=== PATIENT | female | born 1970 | race Caucasian/White ===

== ENCOUNTER 2017-09-03 23:41 | Emergency (ER) | payer BC ==
[2017-09-04] MEDS ORDERED: NS 0.9% 1000 ML* 1,000 ML IV ONE (00:20)
[2017-09-04] MEDS ORDERED: Ondansetron INJ* 2 MG/ML VIAL IV ONE (00:20)
[2017-09-04] MEDS ORDERED: Morphine VIAL* 4 MG/ML VIAL (1 ml vial) IV PRN (00:20)
[2017-09-04] MEDS ORDERED: Aspirin 81 mg CHEW TAB* 81 MG TAB.CHEW PO ONE (00:20)
[2017-09-04 00:41] LABS: ABS Basophils 0 10^3/ul (0-0.2); ABS Eosinophils 0.1 10^3/ul (0-0.6); ABS Lymphocytes 2.4 10^3/ul (1.0-4.8); ABS Monocytes 0.5 10^3/ul (0-0.8); ABS Neutrophils 2.5 10^3/ul (1.5-7.7); ABS Nucleated RBC 0 10^3/ul; Eosinophil % 1.8 % (0-6); Hematocrit 37 % (35-47); Hemoglobin 12.4 g/dl (12.0-16.0); Lymphocyte % 43.2 % (25-47); Mean Corpuscular HGB Conc 34 g/dl (31-36); Mean Corpuscular Hemoglobin 29 pg (27-31); Mean Corpuscular Volume 88 fL (80-97); Mean Platelet Volume 8.6 um3 (7.4-10.4); Nucleated Red Blood Cells % 0; Platelet Count 186 10^3/ul (150-450); Red Blood Count 4.22 10^6/ul (4.0-5.4); Red Cell Distribution Width 13 % (10.5-15); White Blood Count 5.6 10^3/ul (3.5-10.8)
[2017-09-04 00:59] LABS: EGFR Non-African American 62.3 (>60)
[2017-09-04 01:16] LABS: INR 0.86 (0.77-1.02)
[2017-09-04] MEDS ORDERED: Ketorolac INJ* 30 MG/ML 1 ML VIAL ONE (02:34)
[2017-09-04] MEDS ORDERED: Ketorolac INJ* 30 MG/ML 1 ML VIAL IV PUSH ONE (02:37)
[2017-09-04] MEDS ORDERED: Morphine VIAL* 4 MG/ML VIAL (1 ml vial) IV ONE (03:16)
--- NOTE | 2017-09-04 04:35 | ED ---
Jacqueline Reyna Elizabeth, scribed for Kim Matos MD on 09/04/17 at 0105 . HPI Chest Pain - HPI Summary HPI Summary: This patient is a 30 year old F presenting to [facility] with a chief complaint of chest pain since 20:30. The patient reports that she was sitting on the couch watching TV when the pain started. The patient rates the pain 6/10 in severity. Symptoms aggravated by deep breaths. Symptoms alleviated by nothing. Patient reports right scapula pain. The patient denies SOB. The patient notes that she took ASA x1 prior to arrival. The patient takes Enbrel, Meloxicam, Singulair, Natalie 180, Klonopin, and Trazadone regularly. - History of Current Complaint Chief Complaint: EDChestPainROMI Time Seen by Provider: 09/03/17 23:56 Hx Obtained From: Patient Hx Last Menstrual Period: 09/02/14 Onset/Duration: Started Hours Ago - 1.5 hours ago, Still Present Initial Severity: Moderate Current Severity: Moderate Pain Intensity: 6 Pain Scale Used: 0-10 Numeric Chest Pain Location: Diffuse Chest Pain Radiates To:: Shoulder - right scapula Aggravating Factor(s): Deep Breaths Alleviating Factor(s): Nothing Associated Signs and Symptoms: Positive: Chest Pain - Allergy/Home Medications Allergies/Adverse Reactions: Allergies Allergy/AdvReac Type Severity Reaction Status Date / Time doxycycline Allergy Stomach Verified 09/03/17 23:52 Cramps leflunomide [From Arava] Allergy Hives Verified 09/03/17 23:52 naproxen Allergy Stomach Verified 09/03/17 23:52 Cramps NSAIDS (Non-Steroidal Allergy Hives Verified 09/03/17 23:52 Anti-Inflamma Sulfa (Sulfonamide Allergy Hives Verified 09/03/17 23:52 Antibiotics) Home Medications: Home Medications Buspirone HCl [Buspirone HCl] 5 mg PO BID 09/04/17 [History Confirmed 09/04/17] Etanercept [Enbrel] 50 mg SQ SEE INSTRUCTIONS 09/04/17 [History Confirmed ] Meloxicam [Meloxicam] 7.5 mg PO BID 09/04/17 [History Confirmed 09/04/17] Propranolol TAB* [Inderal TAB*] 20 mg PO DAILY 09/04/17 [History Confirmed 09/04] clonazePAM TAB(*) [Klonopin TAB(*)] 1 mg PO TID 09/04/17 [History Confirmed ] traZODone TAB* [Desyrel TAB*] 50 mg PO BEDTIME 09/04/17 [History Confirmed 09/04] PMH/Surg Hx/FS Hx/Imm Hx Endocrine/Hematology History: Denies: Hx Anticoagulant Therapy, Hx Diabetes Cardiovascular History: Reports: Hx Rheumatic Fever - Hx OF 1998, 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 NO Sx, Hx Jaundice - , Other GI Disorders - IBS History: Denies: Hx Renal Disease Musculoskeletal History: Reports: Hx Arthritis - RA, Hx Bursitis - LEFT SHOULDER , Hx Tendonitis - RT WRIST Sensory History: Reports: Hx Contacts or Glasses - GLASSES Denies: Hx Hearing Aid Opthamlomology History: Reports: Hx Contacts or Glasses - GLASSES Psychiatric History: Reports: Hx Anxiety - MEDS AVAILABLE, Hx Depression, Hx Post Traumatic Stress Disorder Denies: Hx Panic Disorder - Cancer History Hx Chemotherapy: No Hx Radiation Therapy: No - Surgical History Surgery Procedure, Year, and Place: R wrist surgery - MAY 2015 Infectious Disease History: No Infectious Disease History: Reports: Hx Shingles - 2009 Denies: History Other Infectious Disease, Traveled Outside the [place] in Last 30 Days - Family History Known Family History: Positive: None - Social History Alcohol Use: Occasionally Alcohol Amount: 1-2 DRINKS/MONTH Substance Use Type: Reports: None Smoking Status (MU): Former Smoker Type: Cigarettes Amount Used/How Often: 1PPWEEK 7 YRS Have You Smoked in the Last Year: No Review of Systems Negative: Epistaxis Positive: Chest Pain Negative: Shortness Of Breath Negative: Abdominal Pain Musculoskeletal: Other - right scapula pain Negative: Headache All Other Systems Reviewed And Are Negative: Yes Physical Exam - Summary Physical Exam Summary: VITAL SIGNS: Reviewed. GENERAL: ~Patient is a well-developed and nourished female who is lying comfortable in the stretcher. Patient is not in any acute respiratory distress. HEAD AND FACE: No signs of trauma. No ecchymosis, hematomas or skull depressions. No sinus tenderness. EYES: PERRLA, EOMI x 2, No injected conjunctiva, no nystagmus. EARS: Hearing grossly intact. Ear canals and tympanic membranes are within normal limits. MOUTH: Oropharynx within normal limits. NECK: Supple, trachea is midline, no adenopathy, no JVD, no carotid bruit, no c- spine tenderness, neck with full ROM. CHEST: Symmetric, no tenderness at palpation LUNGS: Clear to auscultation bilaterally. No wheezing or crackles. CVS: Regular rate and rhythm, S1 and S2 present, no murmurs or gallops appreciated. ABDOMEN: Soft, non-tender. No signs of distention. No rebound no guarding, and no masses palpated. Bowel sounds are normal. EXTREMITIES: FROM in all major joints, no edema, no cyanosis or clubbing. NEURO: Alert and oriented x 3. No acute neurological deficits. Speech is normal and follows commands. SKIN: Dry and warm Triage Information Reviewed: Yes Vital Signs On Initial Exam: Initial Vitals Temp Pulse Resp BP Pulse Ox 97.3 F 82 16 96/77 98 09/03/17 23:41 09/03/17 23:41 09/03/17 23:41 09/03/17 23:41 09/03/17 23:41 Vital Signs Reviewed: Yes Diagnostics - Vital Signs Vital Signs Temp Pulse Resp BP Pulse Ox 09/04/17 00:07 74 16 99/55 97 09/04/17 00:01 79 16 63/53 99 09/04/17 00:00 73 99 09/03/17 23:59 76 98 09/03/17 23:41 97.3 F 82 16 96/77 98 - Laboratory Lab Results: Lab Results 09/04/17 Range/Units 00:33 WBC 5.6 (3.5-10.8) 10^3/ul RBC 4.22 (4.0-5.4) 10^6/ul Hgb 12.4 (12.0-16.0) g/dl Hct 37 (35-47) % MCV 88 (80-97) fL MCH 29 (27-31) pg MCHC 34 (31-36) g/dl RDW 13 (10.5-15) % Plt Count 186 (150-450) 10^3/ul MPV 8.6 (7.4-10.4) um3 Neut % (Auto) 45.1 (38-83) % Lymph % (Auto) 43.2 (25-47) % [place] % (Auto) 9.3 H (0-7) % Eos % (Auto) 1.8 (0-6) % Baso % (Auto) 0.6 (0-2) % Absolute Neuts (auto) 2.5 (1.5-7.7) 10^3/ul Absolute Lymphs (auto) 2.4 (1.0-4.8) 10^3/ul Absolute Monos (auto) 0.5 (0-0.8) 10^3/ul Absolute Eos (auto) 0.1 (0-0.6) 10^3/ul Absolute Basos (auto) 0 (0-0.2) 10^3/ul Absolute Nucleated RBC 0 10^3/ul Nucleated RBC % 0 Result Diagrams: 09/04/17 00:33 09/04/17 00:33 Lab Statement: Any lab studies that have been ordered have been reviewed, and results considered in the medical decision making process. - Radiology CXR Xray Interpretation: No Acute Changes Radiology Interpretation Completed By: ED Physician - Dr. Matos, pending official report - EKG 23:59 Cardiac Rate: NL - at 76 BPM EKG Rhythm: Sinus Rhythm EKG Interpretation: normal axis, normal intervals, no ischemic changes Re-Evaluation - Re-Evaluation 1st re-eval Re-Evaluation Time: 01:26 Change: Improved Comment: The patien feels better. Discussed lab results with patient. Patient's troponin is 0 and it will re-checked again in 4 hours Chest Pain Course/Dx - Course Course Of Treatment: An EKG reveals NSR at 76 BPM with normal axis, normal intervals, no ischemic changes. CXR reveals no acute changes as interpreted by Dr. Matos, pending official report. ED physician has reviewed this radiology report. Upon re-evaluation at 01:25, the patient feels better. The patients troponin came back as 0 and will be repeated again in 4 hours. At 2:30 the patients chest pain resumed. In the ED course the patient was given ASA, IV fluids, morphine, and Zofran. Patient will be discharged home with dx of chest wall pain and with prescription for oxycodone. The patient is agreeable with this plan. - Diagnoses Provider Diagnoses: Chest wall pain Discharge - Sign-Out/Discharge Documenting (check all that apply): Discharge/Admit/Transfer - Discharge Plan Condition: Stable Disposition: HOME Prescriptions: oxyCODONE/Acetamin 5/325 MG* [Percocet 5/325 TAB*] 1 tab PO Q6H PRN #14 tab MDD 4 PRN Reason: Pain Patient Education Materials: Chest Wall Pain (ED) Referrals: Alejandro Jin MD [Primary Care Provider] - Additional Instructions: Follow up with primary care physician in 2-3 days if symptoms persist. Return to the emergency department with any new or worsening symptoms. The documentation as recorded by the Jacqueline robin Elizabeth accurately reflects the service I personally performed and the decisions made by Shawna mitchell Abdul, MD.
[2017-09-04 04:46] VITALS: BP 95/61
--- NOTE | 2017-09-04 08:02 | RAD ---
INDICATION: Chest pain COMPARISON: None TECHNIQUE: An AP portable view obtained at 0043 hours is submitted. FINDINGS: Bones/Soft Tissues: There are no acute bony findings. Cardiomediastinal: The cardiomediastinal silhouette is normal. Lungs: There are no infiltrates. Pleura: There are no pleural effusions. Other: None IMPRESSION: NO ACTIVE DISEASE.
== END 2017-09-04 04:45 | disposition home or self-care (01) ==
LOC: ED 23:41
DX: R07.89 Other chest pain (principal); K21.9 Gastro-esophageal reflux disease without esophagitis; F41.9 Anxiety disorder, unspecified; M19.90 Unspecified osteoarthritis, unspecified site; Z86.19 Personal history of other infectious and parasitic diseases; Z87.891 Personal history of nicotine dependence; Z88.3 Allergy status to other anti-infective agents; Z88.2 Allergy status to sulfonamides; Z88.8 Allergy status to other drugs, medicaments and biological substances
CPT/HCPCS: 36415; 71045; 80053; 82550; 83605; 83735; 83880; 84484; 85025; 85379; 85610; 85730; 93005; 96374; 96375; 99283; A9270-GY; J1885; J2270; J2405

== ENCOUNTER 2018-04-14 10:15 | Emergency (ER) | payer BC, OTHER ==
--- NOTE | 2018-04-14 11:15 | ED ---
Lower Extremity - HPI Summary HPI Summary: 48-year-old female presents with right knee pain today. She states she fell walking into work on her patella. She states that her knee did not twist. No numbness or tingling. States she has history of knee pain. Is able to ambulate with a limp. Denies any ankle pain. No other injury. no popping or locking. knee has not been giving out. She states she has least amount of pain when the knee is straight. - History of Current Complaint Chief Complaint: EDExtremityLower Stated Complaint: FALL/RIGHT KNEE Time Seen by Provider: 04/14/18 10:38 Hx Last Menstrual Period: 09/02/14 Pain Intensity: 8 - Allergies/Home Medications Allergies/Adverse Reactions: Allergies Allergy/AdvReac Type Severity Reaction Status Date / Time doxycycline AdvReac Stomach Verified 04/14/18 10:17 Cramps leflunomide [From Arava] AdvReac Hives Verified 04/14/18 10:17 naproxen AdvReac Stomach Verified 04/14/18 10:17 Cramps NSAIDS (Non-Steroidal AdvReac Hives Verified 04/14/18 10:17 Anti-Inflamma Sulfa (Sulfonamide AdvReac Hives Verified 04/14/18 10:17 Antibiotics) PMH/Surg Hx/FS Hx/Imm Hx Endocrine/Hematology History: Denies: Hx Anticoagulant Therapy, Hx Diabetes Cardiovascular History: Reports: Hx Rheumatic Fever - Hx OF 1998, 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 NO Sx, Hx Jaundice - INFANT, Other GI Disorders - IBS History: Denies: Hx Renal Disease Musculoskeletal History: Reports: Hx Arthritis - RA, Hx Bursitis - LEFT SHOULDER , Hx Tendonitis - RT WRIST Sensory History: Reports: Hx Contacts or Glasses - GLASSES Denies: Hx Hearing Aid Opthamlomology History: Reports: Hx Contacts or Glasses - GLASSES Psychiatric History: Reports: Hx Anxiety - MEDS AVAILABLE, Hx Depression, Hx Post Traumatic Stress Disorder Denies: Hx Panic Disorder - Cancer History Hx Chemotherapy: No Hx Radiation Therapy: No - Surgical History Surgery Procedure, Year, and Place: R wrist surgery - MAY 2015 Infectious Disease History: No Infectious Disease History: Reports: Hx Shingles - 2009 Denies: History Other Infectious Disease, Traveled Outside the [place] in Last 30 Days - Family History Known Family History: Positive: None - Social History Alcohol Use: Rare Alcohol Amount: 1-2 DRINKS/MONTH Substance Use Type: Reports: None Smoking Status (MU): Former Smoker Type: Cigarettes Amount Used/How Often: 1PPWEEK 7 YRS Have You Smoked in the Last Year: No Review of Systems Negative: Fever Negative: Chest Pain Negative: Shortness Of Breath Positive: Myalgia - right knee pain All Other Systems Reviewed And Are Negative: Yes Physical Exam Triage Information Reviewed: Yes Vital Signs On Initial Exam: Initial Vitals Temp Pulse Resp BP Pulse Ox 98.0 F 85 16 114/62 99 04/14/18 10:18 04/14/18 10:18 04/14/18 10:18 04/14/18 10:18 04/14/18 10:18 Vital Signs Reviewed: Yes Appearance: Positive: Well-Appearing Skin: Positive: Warm, Dry Head/Face: Positive: Normal Head/Face Inspection Eyes: Positive: Normal, Conjunctiva Clear ENT: Positive: Pharynx normal Respiratory/Lung Sounds: Positive: Clear to Auscultation, Breath Sounds Present Cardiovascular: Positive: Normal, RRR Musculoskeletal: Positive: Limited @ - right knee, Other - abrasion to patella right knee, good pulses, tenderness patella Neurological: Positive: Normal Psychiatric: Positive: Normal Diagnostics - Vital Signs Vital Signs Temp Pulse Resp BP Pulse Ox 04/14/18 10:18 98.0 F 85 16 114/62 99 - Laboratory Lab Statement: Any lab studies that have been ordered have been reviewed, and results considered in the medical decision making process. - Radiology knee Radiology Interpretation Completed By: Radiologist Summary of Radiographic Findings: no fracture Lower Extremity Course/Dx - Course Course Of Treatment: 48-year-old female presents with right knee pain today. She states she fell walking into work on her patella. She states that her knee did not twist. No numbness or tingling. States she has history of knee pain. Is able to ambulate with a limp. Denies any ankle pain. No other injury. no popping or locking. knee has not been giving out. She states she has least amount of pain when the knee is straight. On exam tenderness of patella right. Abrasion noted to the knee. Neurovascular intact. X-ray normal. Told to practice rice. Patient understands agrees with plan. - Diagnoses Differential Diagnosis/HQI/PQRI: Positive: Fracture (Closed), Sprain, Strain Provider Diagnoses: Right knee pain Discharge - Sign-Out/Discharge Documenting (check all that apply): Patient Departure - Discharge Plan Condition: Good Disposition: HOME Patient Education Materials: Knee Pain (ED) Forms: *Work Release Referrals: Trini Cuba NP [Primary Care Provider] - Rebeca Villarreal MD [Medical Doctor] - Additional Instructions: ice, elevate Take Tylenol every 6 hours as needed for pain follow up with ortho if no improvement Return to ED if develop any new or worsening symptoms - Billing Disposition and Condition Condition: GOOD Disposition: Home
[2018-04-14 11:40] VITALS: BP 108/57
== END 2018-04-14 11:39 | disposition home or self-care (01) ==
LOC: ED 10:15
DX: M25.561 Pain in right knee (principal); S80.211A Abrasion, right knee, initial encounter; W18.30XA Fall on same level, unspecified, initial encounter; Y93.01 Activity, walking, marching and hiking; Y92.239 Unspecified place in hospital as the place of occurrence of the external cause; Y99.0 Civilian activity done for income or pay; Z88.6 Allergy status to analgesic agent; Z88.1 Allergy status to other antibiotic agents; Z88.2 Allergy status to sulfonamides; Z87.891 Personal history of nicotine dependence
CPT/HCPCS: 99281

== ENCOUNTER → 2018-08-23 13:55 | Emergency (ER) | payer BC ==
--- OUTSIDE RECORDS SUMMARY | 2018-08-23 14:27 | XMS REPORT | Continuity of Care Document ---
:1970 External Reference #:[id number] Author Name Belen Daniels Care Team Providers Name Role Phone Trini Cuba FNP Primary Care Physician Unavailable Payers Date Identification Numbers Payment Provider Subscriber Effective: 2012 Policy Number: [id number] [employer] Lolis Nelson Cordell PayID: [id number] [address] Onset: 2018 Policy Number: [id number] [facility] Lolis Landa PayID: [id number] [place] [id number] Advance Directives Description No Information Available Problems Active Problems Provider Date Rheumatoid arthritis Rolan Patton M.D. Onset: 12/23/2011 Medications Irrigator Valve Pipe (Current) Use Encounter Rolan Patton M.D. Onset: 02/2012 Malaise and fatigue Rolan Patton M.D. 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 Tobacco Use Start: Unknown End: Former Cigarette Smoker Unknown Smoking Status Reviewed: 08/02/18 Former Cigarette Smoker ETOH Use Rarely consumes alcohol Tobacco Use Start: Unknown End: Patient is a former smoker Unknown Recreational Drug Use Denies Drug Use Exercise Type/Frequency Exercises regularly Allergies, Adverse Reactions, Alerts Active Allergies Reaction Severity Comments Date Sulfa 09/30/2010 Doxycycline 09/30/2010 Arava 09/30/2010 Ibuprofen 09/30/2010 Sulfasalazine Urticaria 05/19/2017 Medications Active Medications SIG Qnty Indications Ordering Date Provider Propranolol HCL take 1 in am and 2 90tabs G44.40 Justin 20mg in pm Keyanna Neumann 9 Tablets Meloxicam take one tab twice 180tabs M06.062 Alejandro Odell, 7.5mg daily as needed for M.DAkilah 7 Tablets pain, avoid other nsaids Neoprene Knee use daily to help 1units M22.41 Alejandro Odell, Stabilizer/Medium provide knee support M.Kwame 6 to improve Misc chondromalacia patella Hydrocodone-Acetamin take one 60tabs Alejandro Odell, ophen capsule/tablet by Keyanna 5 5-325mg Tablets mouth twice daily as needed for pain Bilateral Hinged use as needed Latasha Awad, Knee Sleeves Keyanna 5 Enbrel Sureclick 50mg sq inj every 12units M06.062 Alejandro Odell, week MAkilahDAkilah 1 50mg/ml Solution Auto-Inject Tumeric 1 tab a day Unknown 0 Magnesium 1 by mouth every day Unknown 400mg 0 Tablets CBD Unknown Liquid 0 Tizanidine HCL Bereket, 2mg Trini, SHANK ARCHER 0 Tablets Aripiprazole 1 by mouth one time Unknown 2mg per day 0 Tablets Trazodone HCL Alejandro Jin, 50mg MD 0 Tablets Desvenlafaxine Alejandro Jin, Succinate ER MD 0 100mg Tablets ER 24HR Montelukast Sodium Lynsey Paula C ,CFNP 0 10mg Tablets Fluticasone Lynsey Paula Propionate C ,CFNP 0 50mcg/Act Suspension Clobetasol Bereket, Propionate Trini, SHANK ARCHER 0 0.05% Lotion Lamotrigine Alexandrea Petit 25mg Gisele, BACK HANGER 0 Tablets Singulair 1 po qd 90tabs Unknown 10mg 0 Tablets Klonopin 1 tab 3x day 90tabs Unknown 1mg Tablets 0 Multi Complete daily Unknown 0 Capsules Digestive Enzymes 1 by mouth every day Unknown 0 Capsules Essential Oils aromatherapy Unknown 0 Clobex apply 3 times a week Unknown 0.05% Lotion for 2 wks as 0 directed Flonase Allergy spray 1 spray in Unknown Relief each nostril twice 0 50mcg/Act daily Suspension Pristiq 1 by mouth every day Unknown 100mg Tablets 0 ER 24HR Buspirone HCL 1 by mouth twice a Unknown 5mg day 0 Tablets Trazodone HCL 2 tablet at bedtime Unknown 50mg as needed 0 Tablets Natalie Allergy 1 by mouth every day Unknown 180mg 0 Tablets History Medications Propranolol HCL 1 tab in in the 90tabs G44.40 Justin 09/09/2017 - 20mg morning and 1 at [place] M.Kwame 04/23/2018 Tablets hs Propranolol HCL ER take 1 by mouth 30caps G44.40 Queta Hernandez MD 2017 - 60mg at night 09/09/2017 Caps ER 24HR Propranolol HCL 1 tab in am and 90tabs Queta Hernandez MD 06/03/2017 - 20mg 2 tabs at hs 07/15/2017 Tablets Methylprednisolone take according 21units G44.40 Queta Hernandez MD 2017 - 4mg to package 07/14/2017 TBPK instructions Malcolm-3 & Malcolm-6 Fish Take one 90caps Alejandro Odell, 10/16/2016 - Oil capsule/tablet M.D. 05/18/2017 1200mg Capsules daily by mouth for ra Cyanocobalamin take one 90tabs M06.062 Alejandro Odell, 05/19/2016 - 2500mcg capsule/tablet M.D. 05/18/2017 Tablets Sub daily by mouth Ultracet 1 - 2 by mouth 30tabs Latasha 06/11/2015 - 37.5-325mg q4-6hr as needed Keyanna Awad 07/14/2017 Tablets pain Ultracet 1-2 tabs by 30tabs Latasha 05/03/2015 - 37.5-325mg mouth every 4-6 Keyanna Awad 08/27/2015 Tablets hours as needed pain Naproxen DR 1 bid 60tabs M06.09 Rolan Patton, 04/19/2015 - 500mg Tablets M.D. 04/20/2015 DR Gonzalez twice daily with 60tabs M25.579 Alejandro Odell, 01/18/2015 - 500mg Tablets food as needed M.D. 05/18/2017 Methocarbamol take 2 tabs by 14tabs 782.0 Arielle Soto, 03/24/2014 - 500mg mouth as needed [facility] 10/03/2015 Tablets (not taking) Ultracet 1 po q4-6hr prn 30tabs Latasha 11/04/2012 - 37.5-325mg pain Keyanna Awad 08/27/2015 Tablets Carafate 2 tsp po qid 1Bottle Other Ordering 09/03/2012 - 1GM/10ML Provider 01/18/2015 Suspension Align 1 po qd 30caps Other Ordering 09/03/2012 - 4mg Capsules Provider 03/24/2014 Zithromax Z-Gregorio take 2 tabs po 1tabs 461.9 Arielle Soto, 09/03/2012 - 250mg 1st day of [facility] 01/12/2013 Tablets treatment then 1 tab po for an additional 4 days. Pristiq 1 po qd Rolan Patton, 06/02/2011 - 100mg Tablets ER M.D. 05/18/2017 24HR Tramadol 1 po bid 60tabs Arielle Soto, 09/30/2010 - Hydrochloride/Acetamin [facility] 06/03/2013 ophen 37.5-325mg Tablets Voltaren apply 4grams to [id number] Alejandro Odell, 09/30/2010 - 1% Gel affected area M.D. 04/13/2018 four times a day as needed Flector topical twice a 60units Rolan Patton, 09/30/2010 - 1.3% Patches day M.D. 09/30/2010 Pulmicort Flexhaler 1 puff bid 1units Unknown - 01/12/2013 90mcg/Act Aerosol Pulmicort Flexhaler 1 puff qd prn Unknown - 07/14/2017 90mcg/Act Aerosol Vitamin D by mouth 30tabs Unknown - 1000Unit everyday 08/15/2014 Tablets Citrucel 2 tablespoon by Unknown - Powder mouth twice a 04/14/2018 day Aleve 2 by mouth twice Unknown - 220mg Capsules a day as needed 04/20/2015 Buspirone HCL take one tablet Unknown - 5mg Tablets by mouth twice a 04/19/2015 day Flexeril 1 tab by mouth Unknown - 5mg Tablets three times a 04/13/2018 day as needed muscle spasm Xyzal 1 by mouth every Unknown - 5mg Tablets day 05/18/2017 Vitamin B12 1 by mouth every Unknown - 1000mcg day 05/18/2017 Tablets ER Vitamin D3 High 1 by mouth every Unknown - Potency day 05/18/2017 1000Unit Capsules Flovent Diskus Unknown - 05/18/2017 50mcg/Blist Aerosol Butalbital/Acetaminoph take 1 capsule Unknown - en/Caffeine as needed up to 07/14/2017 50-325-40mg 3x a day Capsules Lamictal 1 qd for 10 Unknown - 25mg Tablets days, to work up 04/13/2018 to 75 mg Restoril qhs prn 30caps Unknown - 15mg Capsules 06/03/2013 Vitamin B-12 TR sl qd Unknown - 1000mcg 01/12/2013 Tablets ER Melatonin Unknown - 5mg Tablets 01/12/2013 Fish Oil 1 po qd Unknown - 1000mg Capsules 12/23/2011 Zinc-220 1 po qd 30caps Unknown - 220mg Capsules 01/12/2013 Vitamin C 1 po qd 30tabs Unknown - 1000mg Tablets 01/12/2013 Iron 1 po bid Unknown - 325(65Fe) mg Tablets 01/12/2013 Fluticasone Propionate 2 sprays each 16gm Unknown - nostril qday 06/03/2013 50mcg/Act Suspension Pristiq 1 po qd 30tabs Unknown - 50mg Tablets ER 06/02/2011 24HR Pantoprazole Sodium 1 po qd 90tabs Unknown - 40mg 09/03/[address] Be 1 po bid 60caps Unknown - 220mg Capsules 01/12/2013 Cyclobenzaprine HCL take one at 30tabs Unknown - 5mg bedtime as 08/15/2014 Tablets needed Nortrel 1/35 (28) 1 po qd 3month Unknown - 05/18/2017 1-35mg-mcg Tablets Natalie Allergy once daily 30tabs Unknown - 180mg 05/19/2016 Tablets Medications Administered in Office Medication SIG Qnty Indications Ordering Provider Date Depomedrol 40MG Leonard Brumfield M.D. 05/17/2018 Injection Depomedrol 40MG Leonard Brumfield M.D. 01/18/2018 Injection Depomedrol 40MG Leonard Brumfield M.D. 01/18/2018 Injection Ctilalirol 40MG Leonard Brumfield M.D. 10/07/2017 Injection Mynoromedrol 40MG Leonard Brumfield M.D. 09/28/2017 Injection Depomedrol 40MG Jim Clemons M.D. 07/08/2016 Injection Citlalirol 40MG Leonard Brumfield M.D. 01/07/2016 Injection Mynoromedrol 40MG Leonard Brumfield M.D. 12/24/2015 Injection Depomedrol 40MG Latasha Awad M.D. 08/30/2015 Injection Depomedrol 80MG Latasha Awad M.D. 01/25/2015 Injection Depomedrol 80MG Latasha Awad M.D. 06/15/2014 Injection Mynoromedrol 80MG Latasha Awad M.D. 12/15/2013 Injection Mynoromedrol 80MG Latasha Awad M.D. 06/30/2013 Injection Mynoromedrol 80MG Latasha Awad M.D. 06/30/2013 Injection Depomedrol 80MG Latasha Awad M.D. 10/28/2012 Injection Immunizations CPT Code Status Date Vaccine Reaction Lot # [id number] Given 08/27/2015 Pneumonia Vaccine no reaction noted [id number] Vital Signs Date Vital Result Comment 08/02/2018 3:33pm Height 63.5 inches 5'3.50" Weight 188.00 lb Heart Rate 67 /min Body Temperature 97.0 F O2 % BldC Oximetry 97 % BMI (Body Mass Index) 32.8 kg/m2 07/21/2018 3:39pm Height 64 inches 5'4" Weight 188.50 lb Heart Rate 74 /min BP Systolic Sitting 118 mmHg BP Diastolic Sitting 80 mmHg Body Temperature 97.0 F Pain Level 8 O2 % BldC Oximetry 98 % BMI (Body Mass Index) 32.4 kg/m2 05/31/2018 3:30pm Height 64 inches 5'4" Weight 178.00 lb BP Systolic 118 mmHg BP Diastolic 80 mmHg Respiratory Rate 18 /min Pain Level 0 BMI (Body Mass Index) 30.6 kg/m2 05/17/2018 3:10pm Height 64 inches 5'4" Weight 178.00 lb BP Systolic 100 mmHg BP Diastolic 60 mmHg Respiratory Rate 18 /min Pain Level 6 BMI (Body Mass Index) 30.6 kg/m2 05/10/2018 3:35pm Height 64 inches 5'4" Weight 178.00 lb Heart Rate 84 /min BP Systolic 100 mmHg BP Diastolic 52 mmHg Respiratory Rate 18 /min Body Temperature 97.6 F Pain Level 6 BMI (Body Mass Index) 30.6 kg/m2 04/23/2018 3:08pm Height 63.5 inches 5'3.50" Weight 176.00 lb Heart Rate 72 /min BP Systolic Sitting 114 mmHg Rue BP Diastolic Sitting 74 mmHg Rue Respiratory Rate 16 /min BMI (Body Mass Index) 30.7 kg/m2 01/18/2018 3:37pm Heart Rate 72 /min BP Systolic 124 mmHg BP Diastolic 76 mmHg Respiratory Rate 14 /min Pain Level 8 10/21/2017 3:00pm Height 63.5 inches 5'3.50" Weight 175.00 lb pt. stated Heart Rate 80 /min BP Systolic Sitting 94 mmHg BP Diastolic Sitting 62 mmHg Respiratory Rate 14 /min Pain Level 2 BMI (Body Mass Index) 30.5 kg/m2 10/07/2017 3:41pm Height 63.5 inches 5'3.50" Weight 177.00 lb Heart Rate 85 /min BP Systolic 103 mmHg BP Diastolic 68 mmHg Body Temperature 97.5 F BMI (Body Mass Index) 30.9 kg/m2 09/28/2017 10:55am Height 63 inches 5'3" Weight 180.00 lb BP Systolic 108 mmHg BP Diastolic 64 mmHg Respiratory Rate 18 /min Pain Level 10 BMI (Body Mass Index) 31.9 kg/m2 09/09/2017 8:57am Height 63.5 inches 5'3.50" Weight 180.00 lb Heart Rate 70 /min BP Systolic Sitting 116 mmHg BP Diastolic Sitting 70 mmHg BMI (Body Mass Index) 31.4 kg/m2 07/15/2017 2:44pm Height 63.5 inches 5'3.50" Weight 178.44 lb Heart Rate 72 /min BP Systolic 100 mmHg BP Diastolic 68 mmHg BMI (Body Mass Index) 31.1 kg/m2 05/19/2017 1:05pm Height 63.5 inches 5'3.50" Weight 184.00 lb Heart Rate 84 /min BP Systolic 122 mmHg BP Diastolic 80 mmHg BMI (Body Mass Index) 32.1 kg/m2 05/12/2017 9:35am Height 63.5 inches 5'3.50" Weight 205.00 lb Heart Rate 109 /min Respiratory Rate 16 /min Body Temperature 98.3 F Pain Level 5 BMI (Body Mass Index) 35.7 kg/m2 04/22/2017 10:18am Height 63.5 inches 5'3.50" Weight 185.00 lb pt. states Heart Rate 85 /min BP Systolic Sitting 97 mmHg BP Diastolic Sitting 63 mmHg BMI (Body Mass Index) 32.3 kg/m2 10/16/2016 3:45pm Height 63.5 inches 5'3.50" Weight 203.00 lb Heart Rate 102 /min BP Systolic Sitting 114 mmHg BP Diastolic Sitting 74 mmHg Respiratory Rate 14 /min Pain Level 4 BMI (Body Mass Index) 35.4 kg/m2 07/08/2016 9:28am Height 63.5 inches 5'3.50" Weight 205.00 lb Heart Rate 82 /min BP Systolic 128 mmHg BP Diastolic 78 mmHg Respiratory Rate 16 /min Body Temperature 98.1 F Pain Level 8 BMI (Body Mass Index) 35.7 kg/m2 05/19/2016 8:19am Height 63.5 inches 5'3.50" Weight 206.38 lb BMI (Body Mass Index) 36.0 kg/m2 01/07/2016 3:51pm Height 63.5 inches 5'3.50" Weight 192.00 lb Heart Rate 91 /min BP Systolic 124 mmHg BP Diastolic 76 mmHg BMI (Body Mass Index) 33.5 kg/m2 12/24/2015 2:30pm Height 63.5 inches 5'3.50" Weight 199.00 lb Pain Level 8 BMI (Body Mass Index) 34.7 kg/m2 12/11/2015 4:32pm Height 63.5 inches 5'3.50" Weight 199.00 lb Heart Rate 80 /min BP Systolic Sitting 120 mmHg BP Diastolic Sitting 70 mmHg Body Temperature 97.8 F Pain Level 8 BMI (Body Mass Index) 34.7 kg/m2 11/14/2015 9:14am Height 63.5 inches 5'3.50" Weight 210.00 lb BP Systolic 128 mmHg BP Diastolic 72 mmHg Pain Level 9 BMI (Body Mass Index) 36.6 kg/m2 08/30/2015 1:14pm Height 63 inches 5'3" Weight 206.00 lb BMI (Body Mass Index) 36.5 kg/m2 08/27/2015 4:35pm Height 63 inches 5'3" Weight 206.00 lb Heart Rate 80 /min BP Systolic Sitting 120 mmHg BP Diastolic Sitting 80 mmHg Respiratory Rate 14 /min Body Temperature 98.3 F Pain Level 4 BMI (Body Mass Index) 36.5 kg/m2 07/09/2015 8:51am Height 63 inches 5'3" Weight 202.00 lb BMI (Body Mass Index) 35.8 kg/m2 06/11/2015 9:21am Height 63 inches 5'3" Weight 202.00 lb Body Temperature 99.2 F Pain Level 3 BMI (Body Mass Index) 35.8 kg/m2 05/03/2015 2:59pm Height 63 inches 5'3" Weight 202.00 lb BMI (Body Mass Index) 35.8 kg/m2 04/19/2015 2:44pm Height 63 inches 5'3" Weight 202.38 lb Heart Rate 80 /min BP Systolic Sitting 110 mmHg BP Diastolic Sitting 68 mmHg Respiratory Rate 14 /min Body Temperature 99.0 F tympanic Pain Level 3 BMI (Body Mass Index) 35.8 kg/m2 01/25/2015 4:19pm Height 63 inches 5'3" Weight 193.00 lb Pain Level 8 BMI (Body Mass Index) 34.2 kg/m2 01/18/2015 9:30am Height 63 inches 5'3" Weight 193.00 lb pt. stated, declined to be weighed Heart Rate 100 /min BP Systolic Sitting 110 mmHg BP Diastolic Sitting 80 mmHg Respiratory Rate 16 /min Pain Level 10 BMI (Body Mass Index) 34.2 kg/m2 11/15/2014 4:13pm Height 63 inches 5'3" Weight 212.25 lb Heart Rate 80 /min BP Systolic Sitting 94 mmHg BP Diastolic Sitting 56 mmHg Respiratory Rate 14 /min Pain Level 8 BMI (Body Mass Index) 37.6 kg/m2 08/15/2014 4:14pm Height 63 inches 5'3" Weight 200.00 lb Heart Rate 70 /min BP Systolic Sitting 102 mmHg BP Diastolic Sitting 70 mmHg Pain Level 7 BMI (Body Mass Index) 35.4 kg/m2 06/15/2014 3:24pm Height 63 inches 5'3" Weight 196.00 lb Pain Level 8 BMI (Body Mass Index) 34.7 kg/m2 03/24/2014 4:02pm Height 63 inches 5'3" Weight 196.00 lb Heart Rate 90 /min BP Systolic Sitting 118 mmHg BP Diastolic Sitting 72 mmHg Pain Level 7 BMI (Body Mass Index) 34.7 kg/m2 03/02/2014 4:21pm Height 63 inches 5'3" Weight 195.00 lb Pain Level 10 BMI (Body Mass Index) 34.5 kg/m2 02/01/2014 4:26pm Height 63 inches 5'3" Weight 195.00 lb Body Temperature 98.2 F BMI (Body Mass Index) 34.5 kg/m2 12/15/2013 8:00am Height 63 inches 5'3" Weight 195.00 lb Pain Level 6 BMI (Body Mass Index) 34.5 kg/m2 10/24/2013 2:59pm Height 63 inches 5'3" Weight 195.00 lb Heart Rate 96 /min BP Systolic Sitting 110 mmHg BP Diastolic Sitting 60 mmHg BMI (Body Mass Index) 34.5 kg/m2 06/03/2013 3:14pm Height 63 inches 5'3" Weight 191.00 lb Heart Rate 88 /min BP Systolic Sitting 100 mmHg BP Diastolic Sitting 78 mmHg BMI (Body Mass Index) 33.8 kg/m2 01/12/2013 2:42pm Height 63 inches 5'3" Weight 201.00 lb Heart Rate 95 /min BP Systolic Sitting 108 mmHg BP Diastolic Sitting 66 mmHg BMI (Body Mass Index) 35.6 kg/m2 09/03/2012 3:52pm Height 63 inches 5'3" Weight 192.06 lb Heart Rate 88 /min BP Systolic Sitting 128 mmHg BP Diastolic Sitting 72 mmHg BMI (Body Mass Index) 34.0 kg/m2 04/15/2012 4:37pm Height 63 inches 5'3" Weight 184.00 lb Heart Rate 82 /min BP Systolic Sitting 116 mmHg BP Diastolic Sitting 64 mmHg BMI (Body Mass Index) 32.6 kg/m2 12/23/2011 4:28pm Height 63 inches 5'3" Weight 183.00 lb Heart Rate 78 /min BP Systolic Sitting 120 mmHg BP Diastolic Sitting 67 mmHg BMI (Body Mass Index) 32.4 kg/m2 06/02/2011 4:10pm Height 63 inches 5'3" Weight 189.00 lb Heart Rate 82 /min BP Systolic Sitting 124 mmHg BP Diastolic Sitting 71 mmHg BMI (Body Mass Index) 33.5 kg/m2 01/30/2011 4:23pm Height 63 inches 5'3" Weight 200.00 lb BP Systolic 100 mmHg BP Diastolic 70 mmHg BMI (Body Mass Index) 35.4 kg/m2 09/30/2010 4:07pm Height 63 inches 5'3" Weight 183.00 lb Heart Rate 80 /min BP Systolic 120 mmHg BP Diastolic 70 mmHg BMI (Body Mass Index) 32.4 kg/m2 Results Test Date Facility Test Result H/L Range Note Urinalysis Profile 07/30/2018 [facility] Urine Color Straw [address] [place] [address] [phone] Urine Appearance Clear Urine Specific [place] 1.003 Low 1.010-1.030 Urine pH 6.0 N 5-9 Urine Urobilinogen Negative Negative Urine Ketones Negative Negative Urine Protein Negative Negative Urine Leukocytes Negative Negative Urine Blood Negative Negative Urine Nitrite Negative Negative Urine Bilirubin Negative Negative Urine Glucose Negative Negative Immunoglobulins 07/21/2018 [facility] Immunoglobulin G 1340 767 - 1 Serum Quant [address] mg/dL 1590 [place] [address] [phone] Immunoglobulin M 94 mg/dL 37 - 286 Immunoglobulin A 396 mg/dL Abnormal 61 - 356 S.Pneumoniae Igg 07/21/2018 [facility] S. pneumoniae 12.7 g/ mL >=2.3 AB [address] Type 1 [place] [address] [phone] S. pneumoniae Type 2 IgG AB 12.3 g/mL >=1.0 S. pneumoniae Type 3 IgG AB 6.5 g/mL >=1.8 S. pneumoniae Type 4 IgG AB 4.9 g/mL >=0.6 S. pneumoniae Type 5 IgG AB 27.4 g/mL >=10.7 S. pneumoniae Type 8 IgG AB 6.3 g/mL >=2.9 S. pneumoniae Type 9N IgG AB 8.2 g/mL >=9.2 S. pneumoniae Type 12F IgG AB 2.2 g/mL >=0.6 S. pneumoniae Type 14 IgG AB 8.6 g/mL >=7.0 S. pneumoniae Type 17F IgG AB 22.8 g/mL >=7.8 S. pneumoniae Type 19F IgG AB 7.5 g/mL >=15.0 S. pneumoniae Type 20 IgG AB 10.6 g/mL >=1.3 S. pneumoniae Type 22F IgG AB 21.7 g/mL >=7.2 S. pneumoniae Type 23F IgG AB 37.9 g/mL >=8.0 S. pneumoniae Type 6B IgG AB 79.1 g/mL >=4.7 S. pneumoniae Type 10A IgG AB 11.8 g/mL >=2.9 S. pneumoniae Type 11A IgG AB 6.6 g/mL >=2.4 S. pneumoniae Type 7F IgG AB 19.7 g/mL >=3.2 S. pneumoniae Type 15B IgG AB 5.0 g/mL >=3.3 S. pneumoniae Type 18C IgG AB 11.5 g/mL >=3.3 S. pneumoniae Type 19A IgG AB 20.9 g/mL >=17.1 S. pneumoniae Type 9V IgG AB 17.6 g/mL >=2.6 S. pneumoniae Type 33F IgG AB 20.3 g/mL >=1.7 2 T&B Cell 07/21/2018 [facility] CD45 Total 2.29 thou/mcL 0.82- 2.[address] Lymph [place] [address] [phone] Percent CD3 Cells (T Cells) 81 % 58-86 Percent CD19 Cells (B Cells) 8 % 6-24 % CD16+CD56 Cells (NK Cells) 11 % 4-28 Percent CD4 Cell (T Cell) 61 % 32-64 Percent CD8 Cells (T Cells) 19 % 13-40 CD3 (T Cells) 1844 cells/L 550-2202 CD19 (B Cells) 174 cells/L 70-409 CD16+CD56 Count (NK cells) 241 cells/L 59-513 CD4 (T Cell) 1391 cells/L 365-1437 CD8 (T Cell) 430 cells/L 145-846 4/8 Ratio 3.2 >=0.9 T B Cell Comment See Comment 3 Laboratory test 07/15/2018 [facility] Erythrocyte Sed 18 mm/Hr N 0-20 [address] [place] [address] [phone] C Reactive Protein 1.28 mg/L N <8.01 5 CBC Auto Diff 07/15/2018 [facility] White Blood 5.2 10^3/uL N 3.5-10.[address] [place] [address] [phone] Red Blood Count 4.15 10^6/uL N 3.70-4.87 Hemoglobin 12.3 g/dL N 12.0-16.0 Hematocrit 37 % N 33-41 Mean Corpuscular Volume 90 fL N 80-97 Mean Corpuscular Hemoglobin 30 pg N 27-31 Mean Corpuscular HGB Conc 33 g/dL N 31-36 Red Cell Distribution Width 13 % N 10.5-15 Platelet Count 165 10^3/uL N 150-450 Mean Platelet Volume 9.3 fL N 7.4-10.4 Abs Neutrophils 3.6 10^3/uL N 1.5-7.7 Abs Lymphocytes 0.9 10^3/uL Low 1.0-4.8 Abs Monocytes 0.5 10^3/uL N 0-0.8 Abs Eosinophils 0.1 10^3/uL N 0-0.6 Abs Basophils 0 10^3/uL N 0-0.2 Abs Nucleated RBC 0 10^3/uL Granulocyte % 69.2 % Lymphocyte % 18.0 % Monocyte % 9.3 % Eosinophil % 2.8 % Basophil % 0.7 % Nucleated Red Blood Cells % 0 Comp Metabolic Panel 07/15/2018 [facility] Sodium 139 mmol/L N 135-[address] [place] [address] [phone] Potassium 4.2 mmol/L N 3.5-5.0 Chloride 104 mmol/L N 101-111 Co2 Carbon Dioxide 30 mmol/L N 22-32 Anion Gap 5 mmol/L N 2-11 Glucose 86 mg/dL N 70-100 Blood Urea Nitrogen 17 mg/dL N 6-24 Creatinine 1.06 mg/dL High 0.51-0.95 BUN/Creatinine Ratio 16.0 N 8-20 Calcium 9.6 mg/dL N 8.6-10.3 Total Protein 7.0 g/dL N 6.4-8.9 Albumin 4.2 g/dL N 3.2-5.2 Globulin 2.8 g/dL N 2-4 Albumin/Globulin Ratio 1.5 N 1-3 Total Bilirubin 0.30 mg/dL N 0.2-1.0 Alkaline Phosphatase 86 U/L N 34-104 Alt 30 U/L N 7-52 Ast 26 U/L N 13-39 Egfr Non- 55.3 >60 Egfr 66.9 >60 6 Quantiferon 07/09/2018 [facility] QuantiFERON-Tb Negative Negative 7 Gold TB [address] [place] [address] [phone] TB1 Ag minus Nil Result 0 IU/mL TB2 Ag minus Nil Result -0.01 IU/mL TB Mitogen minus Nil Result > 10.00 IU/mL TB Nil Result 0.17 IU/mL 8 Laboratory test 10/19/2017 [facility] Erythrocyte Sed 13 mm/Hr N 0-[address] [place] [address] [phone] C Reactive Protein < 1.00 mg/L N <8.01 10 CBC Auto Diff 10/19/2017 [facility] White Blood 6.6 10^3/uL N 3.5-10.[address] [place] [address] [phone] Red Blood Count 4.46 10^6/uL N 4.00-5.40 Hemoglobin 13.4 g/dL N 12.0-16.0 Hematocrit 40 % N 35-47 Mean Corpuscular Volume 89 fL N 80-97 Mean Corpuscular Hemoglobin 30 pg N 27-31 Mean Corpuscular HGB Conc 34 g/dL N 31-36 Red Cell Distribution Width 13 % N 10.5-15 Platelet Count 232 10^3/uL N 150-450 Mean Platelet Volume 8.4 um3 N 7.4-10.4 Abs Neutrophils 3.6 10^3/uL N 1.5-7.7 Abs Lymphocytes 2.4 10^3/uL N 1.0-4.8 Abs Monocytes 0.4 10^3/uL N 0-0.8 Abs Eosinophils 0.1 10^3/uL N 0-0.6 Abs Basophils 0.1 10^3/uL N 0-0.2 Abs Nucleated RBC 0 10^3/uL Granulocyte % 54.4 % N 38-83 Lymphocyte % 36.5 % N 25-47 Monocyte % 6.4 % N 0-7 Eosinophil % 1.9 % N 0-6 Basophil % 0.8 % N 0-2 Nucleated Red Blood Cells % 0 Comp Metabolic Panel 10/19/2017 [facility] Sodium 137 mmol/L N 135-145 [address] [place] [address] [phone] Potassium 4.1 mmol/L N 3.5-5.0 Chloride 100 mmol/L Low 101-111 Co2 Carbon Dioxide 30 mmol/L N 22-32 Anion Gap 7 mmol/L N 2-11 Glucose 94 mg/dL N 70-100 Blood Urea Nitrogen 15 mg/dL N 6-24 Creatinine 0.95 mg/dL N 0.51-0.95 BUN/Creatinine Ratio 15.8 N 8-20 Calcium 9.7 mg/dL N 8.6-10.3 Total Protein 7.1 g/dL N 6.4-8.9 Albumin 4.3 g/dL N 3.2-5.2 Globulin 2.8 g/dL N 2-4 Albumin/Globulin Ratio 1.5 N 1-3 Total Bilirubin 0.30 mg/dL N 0.2-1.0 Alkaline Phosphatase 78 U/L N 34-104 Alt 17 U/L N 7-52 Ast 17 U/L N 13-39 Egfr Non- 63.1 >60 Egfr 76.3 >60 11 Laboratory test 04/10/2017 [facility] Erythrocyte Sed 27 mm/Hr High 0-14 [address] [place] [address] [phone] C Reactive Protein 2.96 mg/L N < 5.00 13 CBC Auto Diff 04/10/2017 [facility] White Blood 6.0 10^3/uL N 3.5-10.[address] [place] [address] [phone] Red Blood Count 4.20 10^6/uL N 4.0-5.4 Hemoglobin 12.4 g/dL N 12.0-16.0 Hematocrit 37 % N 35-47 Mean Corpuscular Volume 88 fL N 80-97 Mean Corpuscular Hemoglobin 29 pg N 27-31 Mean Corpuscular HGB Conc 34 g/dL N 31-36 Red Cell Distribution Width 14 % N 10.5-15 Platelet Count 215 10^3/uL N 150-450 Mean Platelet Volume 9 um3 N 7.4-10.4 Abs Neutrophils 4.0 10^3/uL N 1.5-7.7 Abs Lymphocytes 1.5 10^3/uL N 1.0-4.8 Abs Monocytes 0.5 10^3/uL N 0-0.8 Abs Eosinophils 0 10^3/uL N 0-0.6 Abs Basophils 0 10^3/uL N 0-0.2 Abs Nucleated RBC 0.01 10^3/uL Granulocyte % 66.5 % N 38-83 Lymphocyte % 25.1 % N 25-47 Monocyte % 7.9 % N 1-9 Eosinophil % 0 % N 0-6 Basophil % 0.5 % N 0-2 Nucleated Red Blood Cells % 0.1 Comp Metabolic Panel 04/10/2017 [facility] Sodium 134 mmol/L N 133-[address] [place] [address] [phone] Potassium 3.9 mmol/L N 3.5-5.0 Chloride 103 mmol/L N 101-111 Co2 Carbon Dioxide 24 mmol/L N 22-32 Anion Gap 7 mmol/L N 2-11 Glucose 99 mg/dL N 70-100 Blood Urea Nitrogen 9 mg/dL N 6-24 Creatinine 0.71 mg/dL N 0.51-0.95 BUN/Creatinine Ratio 12.7 N 8-20 Calcium 9.2 mg/dL N 8.6-10.3 Total Protein 7.1 g/dL N 6.4-8.9 Albumin 4.0 g/dL N 3.2-5.2 Globulin 3.1 g/dL N 2-4 Albumin/Globulin Ratio 1.3 N 1-3 Total Bilirubin 0.20 mg/dL N 0.2-1.0 Alkaline Phosphatase 94 U/L N 34-104 Alt 21 U/L N 7-52 Ast 18 U/L N 13-39 Egfr Non- 88.2 >60 Egfr 113.5 >60 14 Laboratory test 02/10/2017 [facility] Erythrocyte Sed 32 mm/Hr High 0-14 [address] [place] [address] [phone] C Reactive Protein 9.06 mg/L High < 5.00 16 CBC Auto Diff 02/10/2017 [facility] White Blood 8.4 10^3/uL N 3.5-10.[address] [place] [address] [phone] Red Blood Count 4.51 10^6/uL N 4.0-5.4 Hemoglobin 12.9 g/dL N 12.0-16.0 Hematocrit 39 % N 35-47 Mean Corpuscular Volume 86 fL N 80-97 Mean Corpuscular Hemoglobin 29 pg N 27-31 Mean Corpuscular HGB Conc 33 g/dL N 31-36 Red Cell Distribution Width 14 % N 10.5-15 Platelet Count 283 10^3/uL N 150-450 Mean Platelet Volume 9 um3 N 7.4-10.4 Abs Neutrophils 5.8 10^3/uL N 1.5-7.7 Abs Lymphocytes 1.6 10^3/uL N 1.0-4.8 Abs Monocytes 0.7 10^3/uL N 0-0.8 Abs Eosinophils 0.3 10^3/uL N 0-0.6 Abs Basophils 0.1 10^3/uL N 0-0.2 Abs Nucleated RBC 0.01 10^3/uL N Granulocyte % 69.3 % N 38-83 Lymphocyte % 18.8 % Low 25-47 Monocyte % 7.9 % N 1-9 Eosinophil % 3.1 % N 0-6 Basophil % 0.9 % N 0-2 Nucleated Red Blood Cells % 0.1 N Comp Metabolic Panel 02/10/2017 [facility] Sodium 134 mmol/L N 133-[address] [place] [address] [phone] Potassium 4.3 mmol/L N 3.5-5.0 Chloride 97 mmol/L Low 101-111 Co2 Carbon Dioxide 30 mmol/L N 22-32 Anion Gap 7 mmol/L N 2-11 Glucose 87 mg/dL N 70-100 Blood Urea Nitrogen 14 mg/dL N 6-24 Creatinine 0.91 mg/dL N 0.51-0.95 BUN/Creatinine Ratio 15.4 N 8-20 Calcium 10.0 mg/dL N 8.6-10.3 Total Protein 7.6 g/dL N 6.4-8.9 Albumin 4.4 g/dL N 3.2-5.2 Globulin 3.2 g/dL N 2-4 Albumin/Globulin Ratio 1.4 N 1-3 Total Bilirubin 0.30 mg/dL N 0.2-1.0 Alkaline Phosphatase 85 U/L N 34-104 Alt 19 U/L N 7-52 Ast 24 U/L N 13-39 Egfr Non- 66.6 N >60 Egfr 85.6 N >60 17 Laboratory test 10/10/2016 [facility] Erythrocyte Sed 39 mm/Hr High 0-[address] [place] [place] [address] [phone] C Reactive Protein 7.95 mg/L High < 5.00 18 CBC Auto Diff 10/10/2016 [facility] White Blood 6.6 10^3/uL N 3.5-10.[address] [place] [address] [phone] Red Blood Count 4.56 10^6/uL N 4.0-5.4 Hemoglobin 12.9 g/dL N 12.0-16.0 Hematocrit 40 % N 35-47 Mean Corpuscular Volume 88 fL N 80-97 Mean Corpuscular Hemoglobin 28 pg N 27-31 Mean Corpuscular HGB Conc 32 g/dL N 31-36 Red Cell Distribution Width 13 % N 10.5-15 Platelet Count 260 10^3/uL N 150-450 Mean Platelet Volume 9 um3 N 7.4-10.4 Abs Neutrophils 4.4 10^3/uL N 1.5-7.7 Abs Lymphocytes 1.6 10^3/uL N 1.0-4.8 Abs Monocytes 0.4 10^3/uL N 0-0.8 Abs Eosinophils 0 10^3/uL N 0-0.6 Abs Basophils 0 10^3/uL N 0-0.2 Abs Nucleated RBC 0 10^3/uL N Granulocyte % 67.6 % N 38-83 Lymphocyte % 25.1 % N 25-47 Monocyte % 6.3 % N 1-9 Eosinophil % 0.4 % N 0-6 Basophil % 0.6 % N 0-2 Nucleated Red Blood Cells % 0 N Comp Metabolic Panel 10/10/2016 [facility] Sodium 134 mmol/L N 133-[address] [place] [address] [phone] Potassium 3.9 mmol/L N 3.5-5.0 Chloride 103 mmol/L N 101-111 Co2 Carbon Dioxide 26 mmol/L N 22-32 Anion Gap 5 mmol/L N 2-11 Glucose 95 mg/dL N 70-100 Blood Urea Nitrogen 13 mg/dL N 6-24 Creatinine 0.82 mg/dL N 0.51-0.95 BUN/Creatinine Ratio 15.9 N 8-20 Calcium 9.8 mg/dL N 8.6-10.3 Total Protein 7.9 g/dL N 6.4-8.9 Albumin 4.4 g/dL N 3.2-5.2 Globulin 3.5 g/dL N 2-4 Albumin/Globulin Ratio 1.3 N 1-3 Total Bilirubin 0.30 mg/dL N 0.2-1.0 Alkaline Phosphatase 69 U/L N 34-104 Alt 20 U/L N 7-52 Ast 22 U/L N 13-39 Egfr Non- 75.1 N >60 Egfr 96.5 N >60 19 Laboratory test 04/23/2016 [facility] C Reactive 11.53 mg/L High < 5.00 [address] [place] [place] [address] [phone] Erythrocyte Sed Rate 30 mm/Hr High 0-14 CBC W/Auto 04/23/2016 [facility] White Blood 6.6 10^3/uL N 3.5 -10.[address] [place] [address] [phone] Red Blood Count 4.38 10^6/uL N 4.0-5.4 Hemoglobin 12.2 g/dL N 12.0-16.0 Hematocrit 37 % N 35-47 Mean Corpuscular Volume 85 fL N 80-97 Mean Corpuscular Hemoglobin 28 pg N 27-31 Mean Corpuscular HGB Conc 33 g/dL N 31-36 Red Cell Distribution Width 13 % N 10.5-15 Platelet Count 240 10^3/uL N 150-450 Mean Platelet Volume 9 um3 N 7.4-10.4 Abs Neutrophils 4.0 10^3/uL N 1.5-7.7 Abs Lymphocytes 2.0 10^3/uL N 1.0-4.8 Abs Monocytes 0.4 10^3/uL N 0-0.8 Abs Eosinophils 0 10^3/uL N 0-0.6 Abs Basophils 0.1 10^3/uL N 0-0.2 Abs Nucleated RBC 0.01 10^3/uL N Granulocyte % 61.6 % N 38-83 Lymphocyte % 31.0 % N 25-47 Monocyte % 6.2 % N 1-9 Eosinophil % 0.3 % N 0-6 Basophil % 0.9 % N 0-2 Nucleated Red Blood Cells % 0.1 N CMP Panel 04/23/2016 [facility] Sodium 135 mmol/L N 133-[address] [place] [address] [phone] Potassium 4.3 mmol/L N 3.5-5.0 Chloride 102 mmol/L N 101-111 Co2 Carbon Dioxide 26 mmol/L N 22-32 Anion Gap 7 mmol/L N 2-11 Glucose 92 mg/dL N 70-100 Blood Urea Nitrogen 11 mg/dL N 6-24 Creatinine 0.87 mg/dL N 0.51-0.95 BUN/Creatinine Ratio 12.6 N 8-20 Calcium 9.6 mg/dL N 8.6-10.3 Total Protein 7.2 g/dL N 6.4-8.9 Albumin 4.0 g/dL N 3.2-5.2 Globulin 3.2 g/dL N 2-4 Albumin/Globulin Ratio 1.3 N 1-3 Total Bilirubin 0.30 mg/dL N 0.2-1.0 Alkaline Phosphatase 61 U/L N 34-104 Alt 18 U/L N 7-52 Ast 20 U/L N 13-39 Egfr Non- 70.1 N >60 Egfr 90.1 N >60 21 Laboratory test 12/06/2015 [facility] C Reactive 6.05 mg/L High < 5.00 [address] [place] [address] [phone] Erythrocyte Sed Rate 34 mm/Hr High 0-14 Comp Metabolic Panel 12/06/2015 [facility] Sodium 135 mmol/L N 133-[address] [place] [address] [phone] Potassium 4.1 mmol/L N 3.5-5.0 Chloride 102 mmol/L N 101-111 Co2 Carbon Dioxide 24 mmol/L N 22-32 Anion Gap 9 mmol/L N 2-11 Glucose 121 mg/dL High 70-100 Blood Urea Nitrogen 8 mg/dL N 6-24 Creatinine 0.83 mg/dL N 0.51-0.95 BUN/Creatinine Ratio 9.6 N 8-20 Calcium 9.1 mg/dL N 8.6-10.3 Total Protein 7.2 g/dL N 6.4-8.9 Albumin 3.9 g/dL N 3.2-5.2 Globulin 3.3 g/dL N 2-4 Albumin/Globulin Ratio 1.2 N 1-3 Total Bilirubin 0.30 mg/dL N 0.2-1.0 Alkaline Phosphatase 50 U/L N 34-104 Alt 26 U/L N 7-52 Ast 27 U/L N 13-39 Egfr Non- 74.3 N >60 Egfr 95.6 N >60 23 CBC Auto Diff 12/06/2015 [facility] White Blood 5.9 10^3/uL N 3.5-10.[address] [place] [place] [address] [phone] Red Blood Count 4.30 10^6/uL N 4.0-5.4 Hemoglobin 12.1 g/dL N 12.0-16.0 Hematocrit 37 % N 35-47 Mean Corpuscular Volume 86 fL N 80-97 Mean Corpuscular Hemoglobin 28 pg N 27-31 Mean Corpuscular HGB Conc 33 g/dL N 31-36 Red Cell Distribution Width 13 % N 10.5-15 Platelet Count 260 10^3/uL N 150-450 Mean Platelet Volume 9 um3 N 7.4-10.4 Abs Neutrophils 3.9 10^3/uL N 1.5-7.7 Abs Lymphocytes 1.5 10^3/uL N 1.0-4.8 Abs Monocytes 0.3 10^3/uL N 0-0.8 Abs Eosinophils 0 10^3/uL N 0-0.6 Abs Basophils 0.1 10^3/uL N 0-0.2 Abs Nucleated RBC 0 10^3/uL N Granulocyte % 67.2 % N 38-83 Lymphocyte % 26.2 % N 25-47 Monocyte % 5.4 % N 1-9 Eosinophil % 0 % N 0-6 Basophil % 1.2 % N 0-2 Nucleated Red Blood Cells % 0 N CBC W/Auto 08/23/2015 [facility] White Blood 7.2 10^3/uL N 3.5 -10.[address] [place] [address] [phone] Red Blood Count 4.39 10^6/uL N 4.0-5.4 Hemoglobin 12.5 g/dL N 12.0-16.0 Hematocrit 38 % N 35-47 Mean Corpuscular Volume 86 fL N 80-97 Mean Corpuscular Hemoglobin 28 pg N 27-31 Mean Corpuscular HGB Conc 33 g/dL N 31-36 Red Cell Distribution Width 13 % N 10.5-15 Platelet Count 259 10^3/uL N 150-450 Mean Platelet Volume 9 um3 N 7.4-10.4 Abs Neutrophils 4.9 10^3/uL N 1.5-7.7 Abs Lymphocytes 1.8 10^3/uL N 1.0-4.8 Abs Monocytes 0.4 10^3/uL N 0-0.8 Abs Eosinophils 0 10^3/uL N 0-0.6 Abs Basophils 0.1 10^3/uL N 0-0.2 Abs Nucleated RBC 0 10^3/uL N Granulocyte % 68.1 % N 38-83 Lymphocyte % 25.0 % N 25-47 Monocyte % 6.2 % N 1-9 Eosinophil % 0 % N 0-6 Basophil % 0.7 % N 0-2 Nucleated Red Blood Cells % 0 N CMP Panel 08/23/2015 [facility] Sodium 135 mmol/L N 133-145 [address] [place] [address] [phone] Potassium 4.1 mmol/L N 3.5-5.0 Chloride 101 mmol/L N 101-111 Co2 Carbon Dioxide 26 mmol/L N 22-32 Anion Gap 8 mmol/L N 2-11 Glucose 90 mg/dL N 70-100 Blood Urea Nitrogen 9 mg/dL N 6-24 Creatinine 0.80 mg/dL N 0.51-0.95 BUN/Creatinine Ratio 11.3 N 8-20 Calcium 9.3 mg/dL N 8.6-10.3 Total Protein 7.6 g/dL N 6.4-8.9 Albumin 4.0 g/dL N 3.2-5.2 Globulin 3.6 g/dL N 2-4 Albumin/Globulin Ratio 1.1 N 1-3 Total Bilirubin 0.30 mg/dL N 0.2-1.0 Alkaline Phosphatase 58 U/L N 34-104 Alt 20 U/L N 7-52 Ast 20 U/L N 13-39 Egfr Non- 77.6 N >60 Egfr 99.8 N >60 24 Laboratory test 08/23/2015 [facility] C Reactive 12.11 mg/L High < 5.00 25 finding [address] [facility] [place] [place] [address] [phone] Erythrocyte Sed Rate 43 mm/Hr High 0-14 Comp Metabolic Panel 04/18/2015 [facility] Sodium 137 mmol/L N 133-145 [address] [place] [address] [phone] Potassium 4.1 mmol/L N 3.5-5.0 Chloride 105 mmol/L N 101-111 Co2 Carbon Dioxide 24 mmol/L N 22-32 Anion Gap 8 mmol/L N 2-11 Glucose 94 mg/dL N 70-100 Blood Urea Nitrogen 10 mg/dL N 6-24 Creatinine 0.84 mg/dL N 0.51-0.95 BUN/Creatinine Ratio 11.9 N 8-20 Calcium 9.1 mg/dL N 8.6-10.3 Total Protein 7.1 g/dL N 6.4-8.9 Albumin 4.0 g/dL N 3.2-5.2 Globulin 3.1 g/dL N 2-4 Albumin/Globulin Ratio 1.3 N 1-3 Total Bilirubin 0.30 mg/dL N 0.2-1.0 Alkaline Phosphatase 47 U/L N 34-104 Alt 41 U/L N 7-52 Ast 26 U/L N 13-39 Egfr Non- 73.3 N >60 Egfr 94.3 N >60 26 Laboratory test 04/18/2015 [facility] C Reactive 9.29 mg/L High < 5.00 [address] [place] [place] [address] [phone] CBC Auto Diff 04/18/2015 [facility] White Blood 5.7 N 3.5- 10.[address] Count 10^3/[place] [address] [phone] Red Blood Count 4.34 10^6/uL N 4.0-5.4 Hemoglobin 12.3 g/dL N 12.0-16.0 Hematocrit 38 % N 35-47 Mean Corpuscular Volume 88 fL N 80-97 Mean Corpuscular Hemoglobin 28 pg N 27-31 Mean Corpuscular HGB Conc 32 g/dL N 31-36 Red Cell Distribution Width 13 % N 10.5-15 Platelet Count 241 10^3/uL N 150-450 Mean Platelet Volume 9 um3 N 7.4-10.4 Abs Neutrophils 3.4 10^3/uL N 1.5-7.7 Abs Lymphocytes 1.7 10^3/uL N 1.0-4.8 Abs Monocytes 0.3 10^3/uL N 0-0.8 Abs Eosinophils 0.2 10^3/uL N 0-0.6 Abs Basophils 0 10^3/uL N 0-0.2 Abs Nucleated RBC 0 10^3/uL N Granulocyte % 60.4 % N 38-83 Lymphocyte % 29.5 % N 25-47 Monocyte % 5.3 % N 1-9 Eosinophil % 4.2 % N 0-6 Basophil % 0.6 % N 0-2 Nucleated Red Blood Cells % 0.1 N Laboratory test 04/18/2015 [facility] Erythrocyte Sed 33 mm/Hr High 0-[address] [place] [address] [phone] CBC Auto Diff 01/17/2015 [facility] White Blood 5.8 N 4.8- 10.[address] Count 10^3/[place] [address] [phone] Red Blood Count 4.39 10^6/uL N 4.0-5.4 Hemoglobin 12.6 g/dL N 12.0-16.0 Hematocrit 39 % N 35-47 Mean Corpuscular Volume 88 fL N 80-97 Mean Corpuscular Hemoglobin 29 pg N 27-31 Mean Corpuscular HGB Conc 33 g/dL N 31-36 Red Cell Distribution Width 13 % N 10.5-15 Platelet Count 238 10^3/uL N 150-450 Mean Platelet Volume 9 um3 N 7.4-10.4 Abs Neutrophils 3.2 10^3/uL N 1.5-7.7 Abs Lymphocytes 1.8 10^3/uL N 1.0-4.8 Abs Monocytes 0.4 10^3/uL N 0-0.8 Abs Eosinophils 0.4 10^3/uL N 0-0.6 Abs Basophils 0.1 10^3/uL N 0-0.2 Abs Nucleated RBC 0 10^3/uL N Granulocyte % 55.9 % N 38-83 Lymphocyte % 30.3 % N 25-47 Monocyte % 6.5 % N 1-9 Eosinophil % 6.1 % High 0-6 Basophil % 1.2 % N 0-2 Nucleated Red Blood Cells % 0.1 N Comp Metabolic Panel 01/17/2015 [facility] Sodium 136 mmol/L N 133-[address] [place] [address] [phone] Potassium 4.2 mmol/L N 3.5-5.0 Chloride 103 mmol/L N 101-111 Co2 Carbon Dioxide 26 mmol/L N 22-32 Anion Gap 7 mmol/L N 2-11 Glucose 99 mg/dL N 70-100 Blood Urea Nitrogen 6 mg/dL N 6-24 Creatinine 0.89 mg/dL N 0.51-0.95 BUN/Creatinine Ratio 6.7 Low 8-20 Calcium 9.5 mg/dL N 8.6-10.3 Total Protein 6.9 g/dL N 6.4-8.9 Albumin 4.3 g/dL N 3.2-5.2 Globulin 2.6 g/dL N 2-4 Albumin/Globulin Ratio 1.7 N 1-3 Total Bilirubin 0.30 mg/dL N 0.2-1.0 Alkaline Phosphatase 56 U/L N 34-104 Alt 31 U/L N 7-52 Ast 29 U/L N 13-39 Egfr Non- 68.9 N >60 Egfr 88.6 N >60 28 Laboratory test 01/17/2015 [facility] C Reactive 8.26 mg/L High < 5.[address] [place] [address] [phone] Erythrocyte Sed Rate 25 mm/Hr High 0-14 Comp Metabolic Panel 12/19/2014 [facility] Sodium 137 mmol/L N 133-145 [address] [place] [address] [phone] Potassium 4.0 mmol/L N 3.5-5.0 Chloride 104 mmol/L N 101-111 Co2 Carbon Dioxide 25 mmol/L N 22-32 Anion Gap 8 mmol/L N 2-11 Glucose 110 mg/dL High 70-100 Blood Urea Nitrogen 9 mg/dL N 6-24 Creatinine 0.87 mg/dL N 0.51-0.95 BUN/Creatinine Ratio 10.3 N 8-20 Calcium 9.3 mg/dL N 8.6-10.3 Total Protein 6.8 g/dL N 6.4-8.9 Albumin 4.1 g/dL N 3.2-5.2 Globulin 2.7 g/dL N 2-4 Albumin/Globulin Ratio 1.5 N 1-3 Total Bilirubin 0.30 mg/dL N 0.2-1.0 Alkaline Phosphatase 65 U/L N 34-104 Alt 31 U/L N 7-52 Ast 27 U/L N 13-39 Egfr Non- 70.7 N >60 Egfr 91.0 N >60 30 Comp Metabolic Panel 11/14/2014 [facility] Sodium 136 mmol/L N 133-145 [address] [place] [address] [phone] Potassium 4.5 mmol/L N 3.5-5.0 Chloride 101 mmol/L N 101-111 Co2 Carbon Dioxide 28 mmol/L N 22-32 Anion Gap 7 mmol/L N 2-11 Glucose 91 mg/dL N 70-100 Blood Urea Nitrogen 10 mg/dL N 6-24 Creatinine 0.79 mg/dL N 0.51-0.95 BUN/Creatinine Ratio 12.7 N 8-20 Calcium 9.8 mg/dL N 8.6-10.3 Total Protein 7.3 g/dL N 6.4-8.9 Albumin 4.4 g/dL N 3.2-5.2 Globulin 2.9 g/dL N 2-4 Albumin/Globulin Ratio 1.5 N 1-3 Total Bilirubin 0.30 mg/dL N 0.2-1.0 Alkaline Phosphatase 60 U/L N 34-104 Alt 73 U/L High 7-52 Ast 54 U/L High 13-39 Egfr Non- 79.1 N >60 Egfr 101.7 N >60 31 Laboratory test 11/14/2014 [facility] C Reactive 8.44 mg/L High < 5.00 [address] [address] [phone] CBC Auto Diff 11/14/2014 [facility] White Blood 6.3 N 4.8- 10.[address] Count 10^3/uL [place], [place] [phone] Red Blood Count 4.59 10^6/uL N 4.0-5.4 Hemoglobin 13.2 g/dL N 12.0-16.0 Hematocrit 40 % N 35-47 Mean Corpuscular Volume 87 fL N 80-97 Mean Corpuscular Hemoglobin 29 pg N 27-31 Mean Corpuscular HGB Conc 33 g/dL N 31-36 Red Cell Distribution Width 13 % N 10.5-15 Platelet Count 271 10^3/uL N 150-450 Mean Platelet Volume 9 um3 N 7.4-10.4 Abs Neutrophils 3.7 10^3/uL N 1.5-7.7 Abs Lymphocytes 2.0 10^3/uL N 1.0-4.8 Abs Monocytes 0.5 10^3/uL N 0-0.8 Abs Eosinophils 0.1 10^3/uL N 0-0.6 Abs Basophils 0 10^3/uL N 0-0.2 Abs Nucleated RBC 0.01 10^3/uL N Granulocyte % 58.6 % N 38-83 Lymphocyte % 31.7 % N 25-47 Monocyte % 7.3 % N 1-9 Eosinophil % 1.6 % N 0-6 Basophil % 0.8 % N 0-2 Nucleated Red Blood Cells % 0.1 N Laboratory test 11/14/2014 [facility] Erythrocyte Sed 28 mm/Hr High 0-[address] [place] [place] [address] [phone] CBC Auto Diff 08/14/2014 [facility] White Blood 5.1 N 4.8- 10.[address] Count 10^3/[place] [address] [phone] Red Blood Count 4.05 10^6/uL N 4.0-5.4 Hemoglobin 12.0 g/dL N 12.0-16.0 Hematocrit 36 % N 35-47 Mean Corpuscular Volume 88 fL N 80-97 Mean Corpuscular Hemoglobin 30 pg N 27-31 Mean Corpuscular HGB Conc 34 g/dL N 31-36 Red Cell Distribution Width 14 % N 10.5-15 Platelet Count 238 10^3/uL N 150-450 Mean Platelet Volume 9 um3 N 7.4-10.4 Abs Neutrophils 2.7 10^3/uL N 1.5-7.7 Abs Lymphocytes 1.9 10^3/uL N 1.0-4.8 Abs Monocytes 0.3 10^3/uL N 0-0.8 Abs Eosinophils 0.1 10^3/uL N 0-0.6 Abs Basophils 0 10^3/uL N 0-0.2 Abs Nucleated RBC 0 10^3/uL N Granulocyte % 53.5 % N 38-83 Lymphocyte % 37.8 % N 25-47 Monocyte % 6.7 % N 1-9 Eosinophil % 1.2 % N 0-6 Basophil % 0.8 % N 0-2 Nucleated Red Blood Cells % 0 N Comp Metabolic Panel 08/14/2014 [facility] Sodium 135 mmol/L N 133-[address] [place] [address] [phone] Potassium 4.0 mmol/L N 3.5-5.0 Chloride 104 mmol/L N 101-111 Co2 Carbon Dioxide 24 mmol/L N 22-32 Anion Gap 7 mmol/L N 2-11 Glucose 85 mg/dL N 70-100 Blood Urea Nitrogen 8 mg/dL N 6-24 Creatinine 0.78 mg/dL N 0.51-0.95 BUN/Creatinine Ratio 10.3 N 8-20 Calcium 8.9 mg/dL N 8.6-10.3 Total Protein 6.7 g/dL N 6.4-8.9 Albumin 3.9 g/dL N 3.2-5.2 Globulin 2.8 g/dL N 2-4 Albumin/Globulin Ratio 1.4 N 1-3 Total Bilirubin 0.20 mg/dL N 0.2-1.0 Alkaline Phosphatase 46 U/L N 34-104 Alt 25 U/L N 7-52 Ast 22 U/L N 13-39 Egfr Non- 80.2 N >60 Egfr 103.2 N >60 33 Laboratory test 08/14/2014 [facility] C Reactive 10.78 mg/L High < 5.00 [address] [address] [phone] Erythrocyte Sed Rate 29 mm/Hr High 0-14 CBC Auto Diff 03/20/2014 [facility] White Blood 7.1 10^3/uL N 4.8-10.[address] [place] [address] [phone] Red Blood Count 4.23 10^6/uL N 4.0-5.4 Hemoglobin 12.1 g/dL N 12.0-16.0 Hematocrit 36 % N 35-47 Mean Corpuscular Volume 86 fL N 80-97 Mean Corpuscular Hemoglobin 29 pg N 27-31 Mean Corpuscular HGB Conc 33 g/dL N 31-36 Red Cell Distribution Width 13 % N 10.5-15 Platelet Count 280 10^3/uL N 150-450 Mean Platelet Volume 9 um3 N 7.4-10.4 Abs Neutrophils 3.9 10^3/uL N 1.5-7.7 Abs Lymphocytes 2.5 10^3/uL N 1.0-4.8 Abs Monocytes 0.5 10^3/uL N 0-0.8 Abs Eosinophils 0.1 10^3/uL N 0-0.6 Abs Basophils 0.1 10^3/uL N 0-0.2 Abs Nucleated RBC 0.01 10^3/uL N Granulocyte % 55.7 % N 38-83 Lymphocyte % 34.9 % N 25-47 Monocyte % 6.8 % N 1-9 Eosinophil % 1.8 % N 0-6 Basophil % 0.8 % N 0-2 Nucleated Red Blood Cells % 0.1 N Laboratory test 03/20/2014 [facility] Erythrocyte Sed 20 mm/Hr High 0-[address] [place] [address] [phone] C Reactive Protein 7.19 mg/L High < 5.00 35 Comp Metabolic Panel 03/20/2014 [facility] Sodium 135 mmol/L N 133-[address] [place] [address] [phone] Potassium 3.7 mmol/L N 3.5-5.0 Chloride 102 mmol/L N 101-111 Co2 Carbon Dioxide 27 mmol/L N 22-32 Anion Gap 6 mmol/L N 2-11 Glucose 85 mg/dL N 70-100 Blood Urea Nitrogen 8 mg/dL N 6-24 Creatinine 0.90 mg/dL N 0.51-0.95 BUN/Creatinine Ratio 8.9 N 8-20 Calcium 9.2 mg/dL N 8.6-10.3 Total Protein 7.2 g/dL N 6.4-8.9 Albumin 4.1 g/dL N 3.2-5.2 Globulin 3.1 g/dL N 2-4 Albumin/Globulin Ratio 1.3 N 1-3 Total Bilirubin 0.20 mg/dL N 0.2-1.0 Alkaline Phosphatase 45 U/L N 34-104 Alt 17 U/L N 7-52 Ast 18 U/L N 13-39 Egfr Non- 68.3 N >60 Egfr 87.9 N >60 36 Laboratory test 10/31/2013 [facility] Free T4 0.82 ng/mL N 0.61-1.[address] [place] [address] [phone] TSH (Thyroid Stimulating Horm) 1.26 IU/mL N 0.34-5.60 Vitamin D, 25 10/31/2013 [facility] 25-Hydroxy Vitamin <4.0 ng/ mL N Hydroxy [address] [place] [address] [phone] 25-Hydroxy Vitamin D3 45 ng/mL N 25-Hydroxy Vitamin D Total 45 ng/mL N 37 CBC Auto Diff 10/20/2013 [facility] White Blood 7.1 10^3/uL N 4.8-10.[address] [place] [address] [phone] Red Blood Count 4.20 10^6/uL N 4.0-5.4 Hemoglobin 12.1 g/dL N 12.0-16.0 Hematocrit 36 % N 35-47 Mean Corpuscular Volume 86 fL N 80-97 Mean Corpuscular Hemoglobin 29 pg N 27-31 Mean Corpuscular HGB Conc 34 g/dL N 31-36 Red Cell Distribution Width 12 % N 10.5-15 Platelet Count 258 10^3/uL N 150-450 Mean Platelet Volume 9 um3 N 7.4-10.4 Abs Neutrophils 4.2 10^3/uL N 1.5-7.7 Abs Lymphocytes 2.3 10^3/uL N 1.0-4.8 Abs Monocytes 0.3 10^3/uL N 0-0.8 Abs Eosinophils 0.1 10^3/uL N 0-0.6 Abs Basophils 0 10^3/uL N 0-0.2 Abs Nucleated RBC 0 10^3/uL N Granulocyte % 60.1 % N 38-83 Lymphocyte % 33.1 % N 25-47 Monocyte % 4.2 % N 1-9 Eosinophil % 2.0 % N 0-6 Basophil % 0.6 % N 0-2 Nucleated Red Blood Cells % 0.1 N Comp Metabolic Panel 10/20/2013 [facility] Sodium 137 mmol/L N 133-[address] [place] [address] [phone] Potassium 3.5 mmol/L Low 3.7-5.6 Chloride 103 mmol/L N 101-111 Co2 Carbon Dioxide 26 mmol/L N 22-32 Anion Gap 8 mmol/L N 2-11 Glucose 110 mg/dL High 70-100 Blood Urea Nitrogen 10 mg/dL N 6-24 Creatinine 0.84 mg/dL N 0.51-0.95 BUN/Creatinine Ratio 11.9 N 8-20 Calcium 9.1 mg/dL N 8.6-10.3 Total Protein 7.3 g/dL N 6.4-8.9 Albumin 4.3 g/dL N 3.2-5.2 Globulin 3.0 g/dL N 2-4 Albumin/Globulin Ratio 1.4 N 1-3 Total Bilirubin 0.20 mg/dL N 0.2-1.0 Alkaline Phosphatase 58 U/L N 34-104 Alt 19 U/L N 7-52 Ast 19 U/L N 13-39 Egfr Non- 74.0 N >60 Egfr 95.2 N >60 38 Laboratory test 10/20/2013 [facility] Erythrocyte Sed 25 mm/Hr High 0-[address] [place] [address] [phone] C Reactive Protein 7.81 mg/L High < 5.00 39 Comp Metabolic Panel 05/26/2013 [facility] Sodium 137 mmol/L 133-[address] [place] [address] [phone] Potassium 4.0 mmol/L 3.7-5.6 Chloride 104 mmol/L 101-111 Co2 Carbon Dioxide 25 mmol/L 22-32 Anion Gap 8 mmol/L 2-11 Glucose 85 mg/dL 70-100 Blood Urea Nitrogen 8 mg/dL 6-24 Creatinine 0.85 mg/dL 0.51-0.95 BUN/Creatinine Ratio 9.4 8-20 Calcium 9.5 mg/dL 8.6-10.3 Total Protein 7.3 g/dL 6.4-8.9 Albumin 4.4 g/dL 3.2-5.2 Globulin 2.9 g/dL 2-4 Albumin/Globulin Ratio 1.5 1-3 Total Bilirubin 0.30 mg/dL 0.2-1.0 Alkaline Phosphatase 50 U/L 34-104 Alt 17 U/L 7-52 Ast 21 U/L 13-39 Egfr Non- 73.0 >60 Egfr 93.9 >60 40 Laboratory test 05/26/2013 [facility] C Reactive 7.46 mg/L [address] [place] [place] [address] [phone] CBC With Manual 05/26/2013 [facility] White Blood 5.3 4.8-[address] Count 10^3/uL .8 [place] [address] [phone] Red Blood Count 4.54 10^6/uL 4.0-5.4 Hemoglobin 12.8 g/dL 12.0-16.0 Hematocrit 38 % 35-47 Mean Corpuscular Volume 84 fL 80-97 Mean Corpuscular Hemoglobin 28 pg 27-31 Mean Corpuscular HGB Conc 34 g/dL 31-36 Red Cell Distribution Width 13 % 10.5-15 Platelet Count 245 10^3/uL 150-450 Mean Platelet Volume 10 um3 7.4-10.4 Abs Neutrophils 3.6 10^3/uL 1.5-7.7 Abs Lymphocytes 1.2 10^3/uL 1.0-4.8 Abs Monocytes 0.5 10^3/uL 0-0.8 Abs Eosinophils 0 10^3/uL 0-0.6 Abs Basophils 0.1 10^3/uL 0-0.2 Abs Nucleated RBC 0 10^3/uL Neutrophil % 68 % 38-83 Lymphocytes % 18 % Low 25-47 Monocytes % 11 % 0-13 Eosinophils % 1 % 0-6 Basophil % 2 % 0-2 RBC Morphology Normal Normal Laboratory test 05/26/2013 [facility] Erythrocyte Sed 23 mm/Hr High 0-[address] [place] [address] [phone] Comp Metabolic 01/06/2013 [facility] Sodium 135 133-[address] mmol/[place] [address] [phone] Potassium 4.4 mmol/L 3.5-5.0 Chloride 100 mmol/L Low 101-111 Co2 Carbon Dioxide 28.0 mmol/L 22-32 Anion Gap 7.0 mmol/L 2-11 Glucose 107 mg/dL High 70-100 Blood Urea Nitrogen 9 mg/dL 6-24 Creatinine 0.80 mg/dL 0.50-1.40 BUN/Creatinine Ratio 11.3 8-20 Calcium 9.4 mg/dL 8.1-9.9 Total Protein 7.2 g/dL 6.2-8.1 Albumin 3.7 g/dL 3.6-5.4 Globulin 3.5 g/dL 2-4 Albumin/Globulin Ratio 1.1 1-3 Total Bilirubin 0.3 mg/dL Low 0.4-1.5 Alkaline Phosphatase 50 U/L 30-110 Alt 16 U/L 14-54 Ast 21 U/L 12-42 Egfr Non- 78.7 >60 Egfr 101.2 >60 42 Laboratory test 01/06/2013 [facility] C Reactive 1.0 mg/dL High Less than finding [address] Protein 0.5 [place] [address] [phone] CBC With Manual 01/06/2013 [facility] White Blood 6.9 4.8- 10.[address] Count 10^3/uL [place] [id number] [phone] Red Blood Count 4.30 10^6/uL 4.0-5.4 Hemoglobin 12.0 g/dL 12.0-16.0 Hematocrit 38 % 35-47 Mean Corpuscular Volume 88 fL 80-97 Mean Corpuscular Hemoglobin 28 pg 27-31 Mean Corpuscular HGB Conc 32 g/dL 31-36 Red Cell Distribution Width 13 % 10.5-15 Platelet Count 261 10^3/uL 150-450 Mean Platelet Volume 9 um3 7.4-10.4 Abs Neutrophils 4.1 10^3/uL 1.5-7.7 Abs Lymphocytes 2.4 10^3/uL 1.0-4.8 Abs Monocytes 0.4 10^3/uL 0-0.8 Abs Eosinophils 0 10^3/uL 0-0.6 Abs Basophils 0 10^3/uL 0-0.2 Abs Nucleated RBC 0 10^3/uL Neutrophil % 63 % 38-83 Lymphocytes % 33 % 25-47 Monocytes % 4 % 0-13 RBC Morphology Normal Normal Laboratory test 01/06/2013 [facility] Erythrocyte Sed 28 mm/Hr High 0-[address] [place] [address] [phone] CBC With Manual 10/06/2012 [facility] White Blood 6.2 4.8- 10.[address] Count 10^3/[place] [address] [phone] Red Blood Count 4.36 10^6/uL 4.0-5.4 Hemoglobin 12.3 g/dL 12.0-16.0 Hematocrit 38 % 35-47 Mean Corpuscular Volume 87 fL 80-97 Mean Corpuscular Hemoglobin 28 pg 27-31 Mean Corpuscular HGB Conc 33 g/dL 31-36 Red Cell Distribution Width 13 % 10.5-15 Platelet Count 235 10^3/uL 150-450 Mean Platelet Volume 9 um3 7.4-10.4 Abs Neutrophils 3.7 10^3/uL 1.5-7.7 Abs Lymphocytes 2.1 10^3/uL 1.0-4.8 Abs Monocytes 0.4 10^3/uL 0-0.8 Abs Eosinophils 0 10^3/uL 0-0.6 Abs Basophils 0 10^3/uL 0-0.2 Abs Nucleated RBC 0 10^3/uL Neutrophil % 53 % 38-83 Lymphocytes % 40 % 25-47 Monocytes % 7 % 0-13 RBC Morphology Normal Normal Comp Metabolic Panel 10/06/2012 [facility] Sodium 135 mmol/L 133-[address] [place] [address] [phone] Potassium 3.6 mmol/L 3.5-5.0 Chloride 103 mmol/L 101-111 Co2 Carbon Dioxide 25.0 mmol/L 22-32 Anion Gap 7.0 mmol/L 2-11 Glucose 97 mg/dL 70-100 Blood Urea Nitrogen 10 mg/dL 6-24 Creatinine 0.80 mg/dL 0.50-1.40 BUN/Creatinine Ratio 12.5 8-20 Calcium 9.0 mg/dL 8.1-9.9 Total Protein 6.2 g/dL 6.2-8.1 Albumin 3.7 g/dL 3.6-5.4 Globulin 2.5 g/dL 2-4 Albumin/Globulin Ratio 1.5 1-3 Total Bilirubin 0.4 mg/dL 0.4-1.5 Alkaline Phosphatase 68 U/L 30-110 Alt 20 U/L 14-54 Ast 22 U/L 12-42 Egfr Non- 78.7 >60 Egfr 101.2 >60 43 Laboratory test 10/06/2012 [facility] C Reactive < 0.5 mg/dL Less than finding [address] Protein 0.5 [place] [address] [phone] Erythrocyte Sed Rate 22 mm/Hr High 0-14 CBC With 09/01/2012 [facility] White Blood 8.4 10^3/uL 4.8- 10.8 Manual Diff [address] [place] [address] [phone] Red Blood Count 4.62 10^6/uL 4.0-5.4 Hemoglobin 13.3 g/dL 12.0-16.0 Hematocrit 39 % 35-47 Mean Corpuscular Volume 85 fL 80-97 Mean Corpuscular Hemoglobin 29 pg 27-31 Mean Corpuscular HGB Conc 34 g/dL 31-36 Red Cell Distribution Width 13 % 10.5-15 Platelet Count 265 10^3/uL 150-450 Mean Platelet Volume 9 um3 7.4-10.4 Abs Neutrophils 6.4 10^3/uL 1.5-7.7 Abs Lymphocytes 1.7 10^3/uL 1.0-4.8 Abs Monocytes 0.3 10^3/uL 0-0.8 Abs Eosinophils 0 10^3/uL 0-0.6 Abs Basophils 0 10^3/uL 0-0.2 Abs Nucleated RBC 0.01 10^3/uL Neutrophil % 76 % 38-83 Lymphocytes % 18 % Low 25-47 Monocytes % 5 % 0-13 Reactive Lymph % 1 % 0-6 RBC Morphology Normal Normal Laboratory test 09/01/2012 [facility] Erythrocyte Sed 46 mm/Hr High 0-[address] [place] [place] [address] [phone] Comp Metabolic 09/01/2012 [facility] Sodium 139 133-[address] mmol/L [place], [place] [id number] [phone] Potassium 3.8 mmol/L 3.5-5.0 Chloride 101 mmol/L 101-111 Co2 Carbon Dioxide 25.0 mmol/L 22-32 Anion Gap 13.0 mmol/L High 2-11 Glucose 107 mg/dL High 70-100 Blood Urea Nitrogen 5 mg/dL Low 6-24 Creatinine 0.90 mg/dL 0.50-1.40 BUN/Creatinine Ratio 5.6 Low 8-20 Calcium 9.8 mg/dL 8.1-9.9 Total Protein 7.6 g/dL 6.2-8.1 Albumin 4.1 g/dL 3.6-5.4 Globulin 3.5 g/dL 2-4 Albumin/Globulin Ratio 1.2 1-3 Total Bilirubin 0.4 mg/dL 0.4-1.5 Alkaline Phosphatase 66 U/L 30-110 Alt 15 U/L 14-54 Ast 22 U/L 12-42 Egfr Non- 68.7 >60 Egfr 88.3 >60 44 Laboratory test 09/01/2012 [facility] C Reactive 1.3 mg/dL High Less finding [address] Protein than 0.5 [place] [address] [phone] Laboratory test 05/28/2012 [facility] Erythrocyte Sed 37 mm/Hr High 0-[address] [place] [address] [phone] CBC With Manual 05/28/2012 [facility] White Blood 7.1 4.8- 10.[address] Count 10^3/[place] [address] [phone] Red Blood Count 4.19 10^6/uL 4.0-5.4 Hemoglobin 11.9 g/dL Low 12.0-16.0 Hematocrit 36 % 35-47 Mean Corpuscular Volume 86 fL 80-97 Mean Corpuscular Hemoglobin 28 pg 27-31 Mean Corpuscular HGB Conc 33 g/dL 31-36 Red Cell Distribution Width 13 % 10.5-15 Platelet Count 287 10^3/uL 150-450 Mean Platelet Volume 9 um3 7.4-10.4 Abs Neutrophils 4.8 10^3/uL 1.5-7.7 Abs Lymphocytes 1.8 10^3/uL 1.0-4.8 Abs Monocytes 0.5 10^3/uL 0-0.8 Abs Eosinophils 0 10^3/uL 0-0.6 Abs Basophils 0 10^3/uL 0-0.2 Abs Nucleated RBC 0 10^3/uL Neutrophil % 65 % 38-83 Lymphocytes % 23 % Low 25-47 Monocytes % 3 % 0-13 Reactive Lymph % 9 % High 0-6 RBC Morphology Normal Normal Laboratory test 05/28/2012 [facility] C Reactive 0.9 mg/dL High Less than finding [address] Protein 0.5 [place] [address] [phone] Comp Metabolic 05/28/2012 [facility] Sodium 137 mmol/L 133- [address] [place] [address] [phone] Potassium 4.0 mmol/L 3.5-5.0 Chloride 105 mmol/L 101-111 Co2 Carbon Dioxide 24.0 mmol/L 22-32 Anion Gap 8.0 mmol/L 2-11 Glucose 91 mg/dL 70-100 Blood Urea Nitrogen 7 mg/dL 6-24 Creatinine 0.80 mg/dL 0.50-1.40 BUN/Creatinine Ratio 8.8 8-20 Calcium 9.1 mg/dL 8.1-9.9 Total Protein 6.2 g/dL 6.2-8.1 Albumin 3.6 g/dL 3.6-5.4 Globulin 2.6 g/dL 2-4 Albumin/Globulin Ratio 1.4 1-3 Total Bilirubin 0.4 mg/dL 0.4-1.5 Alkaline Phosphatase 55 U/L 30-110 Alt 12 U/L Low 14-54 Ast 16 U/L 12-42 Egfr Non- 78.7 >60 Egfr 101.2 >60 45 Vitamin D, 25 05/28/2012 [facility] 25-Hydroxy Vitamin <4.0 ng/ mL Hydroxy [address] D2 [place] [address] [phone] 25-Hydroxy Vitamin D3 34 ng/mL 25-Hydroxy Vitamin D Total 34 ng/mL 46 Vitamin D, 25 04/20/2012 [facility] 25-Hydroxy Vitamin <4.0 ng/ mL Hydroxy [address] D2 [place] [address] [phone] 25-Hydroxy Vitamin D3 16 ng/mL 25-Hydroxy Vitamin D Total 16 ng/mL Abnormal 47 CBC With 03/29/2012 [facility] White Blood 6.1 10^3/uL 4.8- 10.8 Manual Diff [address] [place] [address] [phone] Red Blood Count 4.10 10^6/uL 4.0-5.4 Hemoglobin 11.8 g/dL Low 12.0-16.0 Hematocrit 36 % 35-47 Mean Corpuscular Volume 87 fL 80-97 Mean Corpuscular Hemoglobin 29 pg 27-31 Mean Corpuscular HGB Conc 33 g/dL 31-36 Red Cell Distribution Width 13 % 10.5-15 Platelet Count 224 10^3/uL 150-450 Mean Platelet Volume 10 um3 7.4-10.4 Abs Neutrophils 3.3 10^3/uL 1.5-7.7 Abs Lymphocytes 2.2 10^3/uL 1.0-4.8 Abs Monocytes 0.3 10^3/uL 0-0.8 Abs Eosinophils 0.3 10^3/uL 0-0.6 Abs Basophils 0.1 10^3/uL 0-0.2 Abs Nucleated RBC 0 10^3/uL Neutrophil % 60.0 % 38-83 Band % 0 % 0-8 Lymphocytes % 33.0 % 25-47 Monocytes % 3.0 % 0-13 Eosinophils % 3.0 % 0-6 Basophil % 1.0 % 0-2 Reactive Lymph % 0 % 0-6 Metamyelocytes % 0 % 0-2 Myelocytes % 0 % 0-1 Promyelocytes % 0 % Blast % 0 % RBC Morphology Normal Normal Laboratory test 03/29/2012 [facility] Erythrocyte Sed 19 mm/Hr High 0-[address] [place] [address] [phone] Comp Metabolic 03/29/2012 [facility] Sodium 137 133-[address] mmol/[place] [address] [phone] Potassium 4.3 mmol/L 3.5-5.0 Chloride 103 mmol/L 101-111 Co2 Carbon Dioxide 26.0 mmol/L 22-32 Anion Gap 8.0 mmol/L 2-11 Glucose 113 mg/dL High 70-100 Blood Urea Nitrogen 14 mg/dL 6-24 Creatinine 0.80 mg/dL 0.50-1.40 BUN/Creatinine Ratio 17.5 8-20 Calcium 8.8 mg/dL 8.1-9.9 Total Protein 6.5 g/dL 6.2-8.1 Albumin 3.7 g/dL 3.6-5.4 Globulin 2.8 g/dL 2-4 Albumin/Globulin Ratio 1.3 1-3 Total Bilirubin 0.6 mg/dL 0.4-1.5 Alkaline Phosphatase 53 U/L 30-110 Alt 12 U/L Low 14-54 Ast 17 U/L 12-42 Egfr Non- 78.7 >60 Egfr 101.2 >60 48 Laboratory test 03/29/2012 [facility] C Reactive 0.7 mg/dL High Less than finding [address] Protein 0.5 [place] [address] [phone] Comp Metabolic 11/03/2011 [facility] Sodium 135 mmol/L 135- [address] [place] [address] [phone] Potassium 4.6 mmol/L 3.5-5.0 Chloride 103 mmol/L 101-111 Co2 (Carbon Dioxide) 25.0 mmol/L 22-32 Anion Gap 7.0 mmol/L 2-11 49 Glucose 93 mg/dL 70-100 BUN 13 mg/dL 6-24 Creatinine 0.9 mg/dL 0.50-1.40 One Over Creatinine 1.11 BUN/Creatinine Ratio 14.4 8-20 Calcium 9.4 mg/dL 8.1-9.9 Total Protein 6.2 GM/DL 6.2-8.1 Albumin 3.9 GM/DL 3.6-5.4 Globulin 2.3 GM/DL 2-4 Albumin/Globulin Ratio 1.7 1-3 Bilirubin Total 0.7 mg/dL 0.4-1.5 50 Alkaline Phosphatase 64 U/L 30-110 Alt (SGPT) 20 U/L 14-54 Ast (Sgot) 23 U/L 12-42 eGFR Non- 69.0 > 60 eGFR 88.7 > 60 51 CBC With Manual 11/03/2011 [facility] White Blood 5.4 CUMM 4.8-10.[address] [place] [address] [phone] Red Cell Count 4.20 CUMM 4.2-5.4 Hemoglobin 12.1 g/dL 12.0-16.0 Hematocrit 37 % 35-47 Mean Corpuscular Volume 87 um3 79-97 Mean Corpuscular Hemoglob 29 pg 27-31 Mean Corpuscular HGB Cone 33 g/dL 32-36 Redcell Distribution WDTH 13 % 10.5-15 Platelet Count 231 CUMM 150-450 Mean Platelet Volume 9.3 um3 7.4-10.4 Absolute Neutrophil Count 2.6 1.5-7.7 Polysegmented Neutrophil 50 % 38-83 Lymphocyte 41 % 25-47 Monocyte 8 % 0-13 Eosinophil 1 % 0-6 RBC Morphology NORMAL Laboratory test 11/03/2011 [facility] C Reactive 0.6 mg/dL High Less Than finding [address] Protein 0.5 [place] [address] [phone] Erythrocyte Sed Rate 22 MM/HR High 0-15 1 Test Performed by: [facility] [address] [place] [address] 2 Either of the two following conditions would be consistent with a normal response to Streptococcus pneumoniae vaccination: Antibody concentrations greater than or equal to the reference value for at least 50% of serotypes in either a pre- or post-vaccination sample. Antibody concentrations increased by 2-fold or greater for at least 50% of serotypes when comparing the pre- to the post-vaccination results. Optimal cut-offs (reference values) were derived by measuring serotype-specific IgG antibody levels in an adult cohort of 100 healthy individuals (previously unvaccinated) before and after pneumococcal vaccination and identifying the antibody level for each serotype that included the largest number of individuals with a negative response (below cut-off) pre-vaccination and a positive response (above cut-off) post-vaccination. ADDITIONAL INFORMATION All 23 serotypes assessed by this assay are included in the Pneumovax 23 vaccine. IgG antibody concentrations following Pneumovax 23 administration are a reflection of an individual's humoral immune response to polysaccharide antigens. Serotypes 1, 3, 4, 5, 6A (6), 14, 19F (19), 23F (23), 6B (26), 7F (51), 18C (56), 19A (57) and 9V (68) are included in the Prevnar-13 conjugate vaccine. Antibody concentrations following Prevnar-13 administration are a reflection of an individual's response to protein-conjugated antigens. Serotypes 2, 8, 9N (9), 12F (12), 17F (17), 20, 22F (22), 10A (34), 11A (43), 15B (54) and 33F (70) are present only in the Pneumovax 23 vaccine and not in Prevnar-13. Responses to these 11 serotypes are a reflection of an individual's response to polysaccharide antigens. Serotype 6A is only present in Prevnar-13. This test was developed and its performance characteristics determined by [facility] in a manner consistent with CLIA requirements. This test has not been cleared or approved by the U.S. Food and Drug Administration. Test Performed by: [address] [facility] recommends samples be tested within 30 hours of collection. This sample exceeds that cut-off. Please consider re-drawing the specimen if clinically indicated. Reviewed by: Braulio Chris M.D. ADDITIONAL INFORMATION Reference values implemented August 03, 2012. This test was developed using an analyte specific reagent. Its performance characteristics were determined by [facility] in a manner consistent with CLIA requirements. This test has not been cleared or approved by the U.S. Food and Drug Administration. Test Performed by: [facility] [address] [place] [address] 4 Test Performed by: [facility] [address] [place] [id number] Dorian Huynh M.D. Director of Laboratory 5 Please check labs 2 days before follow up 6 Because ethnic data is not always readily available, this report includes an eGFR for both -Americans and non- Americans. The National Kidney Disease Education Program (NKDEP) does not endorse the use of the MDRD equation for patients that are not between the ages of 18 and 70, are , have extremes of body size, muscle mass, or nutritional status, or are non- or non-. According to the National Kidney Foundation, irrespective of diagnosis, the stage of the disease is based on the level of kidney function: Stage Description GFR(mL/min/1.73 m(2)) 1 Kidney damage with normal or decreased GFR 90 2 Kidney damage with mild decrease in GFR 60-89 3 Moderate decrease in GFR 30-59 4 Severe decrease in GFR 15-29 5 Kidney failure <15 (or dialysis) 7 No interferon-gamma response to M. tuberculosis antigens was detected. Infection with M. tuberculosis is unlikely. A single negative result does not exclude infection with M. tuberculosis. In patients at high risk for M.tuberculosis infection, a second test should be considered in accordance with the 2017 ATS/IDSA/CDC Clinical Practice Guidelines for Diagnosis of Tuberculosis in Adults and Children [Emeritan UZIEL et. al. Clin. Infect. Dis. 2017;64(2):111-115]. The reference range for the 'TB1 Ag minus Nil Result' and 'TB2 Ag minus Nil Result' is an Interferon-gamma level <0.35 IU/mL. 8 Test Performed by: [facility] [address] [place] [address] 9 Please check labs 2 days before follow up 10 Please check labs 2 days before follow up 11 Because ethnic data is not always readily available, this report includes an eGFR for both -Americans and non- Americans. The National Kidney Disease Education Program (NKDEP) does not endorse the use of the MDRD equation for patients that are not between the ages of 18 and 70, are , have extremes of body size, muscle mass, or nutritional status, or are non- or non-. According to the National Kidney Foundation, irrespective of diagnosis, the stage of the disease is based on the level of kidney function: Stage Description GFR(mL/min/1.73 m(2)) 1 Kidney damage with normal or decreased GFR 90 2 Kidney damage with mild decrease in GFR 60-89 3 Moderate decrease in GFR 30-59 4 Severe decrease in GFR 15-29 5 Kidney failure <15 (or dialysis) 12 Please check prior to appointment 13 Acute inflammation: >10.00 14 Because ethnic data is not always readily available, this report includes an eGFR for both -Americans and non- Americans. The National Kidney Disease Education Program (NKDEP) does not endorse the use of the MDRD equation for patients that are not between the ages of 18 and 70, are , have extremes of body size, muscle mass, or nutritional status, or are non- or non-. According to the National Kidney Foundation, irrespective of diagnosis, the stage of the disease is based on the level of kidney function: Stage Description GFR(mL/min/1.73 m(2)) 1 Kidney damage with normal or decreased GFR 90 2 Kidney damage with mild decrease in GFR 60-89 3 Moderate decrease in GFR 30-59 4 Severe decrease in GFR 15-29 5 Kidney failure <15 (or dialysis) 15 Please check 2 days before follow up 16 Acute inflammation: >10.00 17 Because ethnic data is not always readily available, this report includes an eGFR for both -Americans and non- Americans. The National Kidney Disease Education Program (NKDEP) does not endorse the use of the MDRD equation for patients that are not between the ages of 18 and 70, are , have extremes of body size, muscle mass, or nutritional status, or are non- or non-. According to the National Kidney Foundation, irrespective of diagnosis, the stage of the disease is based on the level of kidney function: Stage Description GFR(mL/min/1.73 m(2)) 1 Kidney damage with normal or decreased GFR 90 2 Kidney damage with mild decrease in GFR 60-89 3 Moderate decrease in GFR 30-59 4 Severe decrease in GFR 15-29 5 Kidney failure <15 (or dialysis) 18 Acute inflammation: >10.00 19 Because ethnic data is not always readily available, this report includes an eGFR for both -Americans and non- Americans. The National Kidney Disease Education Program (NKDEP) does not endorse the use of the MDRD equation for patients that are not between the ages of 18 and 70, are , have extremes of body size, muscle mass, or nutritional status, or are non- or non-. According to the National Kidney Foundation, irrespective of diagnosis, the stage of the disease is based on the level of kidney function: Stage Description GFR(mL/min/1.73 m(2)) 1 Kidney damage with normal or decreased GFR 90 2 Kidney damage with mild decrease in GFR 60-89 3 Moderate decrease in GFR 30-59 4 Severe decrease in GFR 15-29 5 Kidney failure <15 (or dialysis) 20 Acute inflammation: >10.00 21 Because ethnic data is not always readily available, this report includes an eGFR for both -Americans and non- Americans. The National Kidney Disease Education Program (NKDEP) does not endorse the use of the MDRD equation for patients that are not between the ages of 18 and 70, are , have extremes of body size, muscle mass, or nutritional status, or are non- or non-. According to the National Kidney Foundation, irrespective of diagnosis, the stage of the disease is based on the level of kidney function: Stage Description GFR(mL/min/1.73 m(2)) 1 Kidney damage with normal or decreased GFR 90 2 Kidney damage with mild decrease in GFR 60-89 3 Moderate decrease in GFR 30-59 4 Severe decrease in GFR 15-29 5 Kidney failure <15 (or dialysis) 22 Acute inflammation: >10.00 23 Because ethnic data is not always readily available, this report includes an eGFR for both -Americans and non- Americans. The National Kidney Disease Education Program (NKDEP) does not endorse the use of the MDRD equation for patients that are not between the ages of 18 and 70, are , have extremes of body size, muscle mass, or nutritional status, or are non- or non-. According to the National Kidney Foundation, irrespective of diagnosis, the stage of the disease is based on the level of kidney function: Stage Description GFR(mL/min/1.73 m(2)) 1 Kidney damage with normal or decreased GFR 90 2 Kidney damage with mild decrease in GFR 60-89 3 Moderate decrease in GFR 30-59 4 Severe decrease in GFR 15-29 5 Kidney failure <15 (or dialysis) 24 Because ethnic data is not always readily available, this report includes an eGFR for both -Americans and non- Americans. The National Kidney Disease Education Program (NKDEP) does not endorse the use of the MDRD equation for patients that are not between the ages of 18 and 70, are , have extremes of body size, muscle mass, or nutritional status, or are non- or non-. According to the National Kidney Foundation, irrespective of diagnosis, the stage of the disease is based on the level of kidney function: Stage Description GFR(mL/min/1.73 m(2)) 1 Kidney damage with normal or decreased GFR 90 2 Kidney damage with mild decrease in GFR 60-89 3 Moderate decrease in GFR 30-59 4 Severe decrease in GFR 15-29 5 Kidney failure <15 (or dialysis) 25 Acute inflammation: >10.00 26 Because ethnic data is not always readily available, this report includes an eGFR for both -Americans and non- Americans. The National Kidney Disease Education Program (NKDEP) does not endorse the use of the MDRD equation for patients that are not between the ages of 18 and 70, are , have extremes of body size, muscle mass, or nutritional status, or are non- or non-. According to the National Kidney Foundation, irrespective of diagnosis, the stage of the disease is based on the level of kidney function: Stage Description GFR(mL/min/1.73 m(2)) 1 Kidney damage with normal or decreased GFR 90 2 Kidney damage with mild decrease in GFR 60-89 3 Moderate decrease in GFR 30-59 4 Severe decrease in GFR 15-29 5 Kidney failure <15 (or dialysis) 27 Acute inflammation: >10.00 28 Because ethnic data is not always readily available, this report includes an eGFR for both -Americans and non- Americans. The National Kidney Disease Education Program (NKDEP) does not endorse the use of the MDRD equation for patients that are not between the ages of 18 and 70, are , have extremes of body size, muscle mass, or nutritional status, or are non- or non-. According to the National Kidney Foundation, irrespective of diagnosis, the stage of the disease is based on the level of kidney function: Stage Description GFR(mL/min/1.73 m(2)) 1 Kidney damage with normal or decreased GFR 90 2 Kidney damage with mild decrease in GFR 60-89 3 Moderate decrease in GFR 30-59 4 Severe decrease in GFR 15-29 5 Kidney failure <15 (or dialysis) 29 Acute inflammation: >10.00 30 Because ethnic data is not always readily available, this report includes an eGFR for both -Americans and non- Americans. The National Kidney Disease Education Program (NKDEP) does not endorse the use of the MDRD equation for patients that are not between the ages of 18 and 70, are , have extremes of body size, muscle mass, or nutritional status, or are non- or non-. According to the National Kidney Foundation, irrespective of diagnosis, the stage of the disease is based on the level of kidney function: Stage Description GFR(mL/min/1.73 m(2)) 1 Kidney damage with normal or decreased GFR 90 2 Kidney damage with mild decrease in GFR 60-89 3 Moderate decrease in GFR 30-59 4 Severe decrease in GFR 15-29 5 Kidney failure <15 (or dialysis) 31 Because ethnic data is not always readily available, this report includes an eGFR for both -Americans and non- Americans. The National Kidney Disease Education Program (NKDEP) does not endorse the use of the MDRD equation for patients that are not between the ages of 18 and 70, are , have extremes of body size, muscle mass, or nutritional status, or are non- or non-. According to the National Kidney Foundation, irrespective of diagnosis, the stage of the disease is based on the level of kidney function: Stage Description GFR(mL/min/1.73 m(2)) 1 Kidney damage with normal or decreased GFR 90 2 Kidney damage with mild decrease in GFR 60-89 3 Moderate decrease in GFR 30-59 4 Severe decrease in GFR 15-29 5 Kidney failure <15 (or dialysis) 32 Acute inflammation: >10.00 33 Because ethnic data is not always readily available, this report includes an eGFR for both -Americans and non- Americans. The National Kidney Disease Education Program (NKDEP) does not endorse the use of the MDRD equation for patients that are not between the ages of 18 and 70, are , have extremes of body size, muscle mass, or nutritional status, or are non- or non-. According to the National Kidney Foundation, irrespective of diagnosis, the stage of the disease is based on the level of kidney function: Stage Description GFR(mL/min/1.73 m(2)) 1 Kidney damage with normal or decreased GFR 90 2 Kidney damage with mild decrease in GFR 60-89 3 Moderate decrease in GFR 30-59 4 Severe decrease in GFR 15-29 5 Kidney failure <15 (or dialysis) 34 Acute inflammation: >10.00 35 Acute inflammation: >10.00 36 Because ethnic data is not always readily available, this report includes an eGFR for both -Americans and non- Americans. The National Kidney Disease Education Program (NKDEP) does not endorse the use of the MDRD equation for patients that are not between the ages of 18 and 70, are , have extremes of body size, muscle mass, or nutritional status, or are non- or non-. According to the National Kidney Foundation, irrespective of diagnosis, the stage of the disease is based on the level of kidney function: Stage Description GFR(mL/min/1.73 m(2)) 1 Kidney damage with normal or decreased GFR 90 2 Kidney damage with mild decrease in GFR 60-89 3 Moderate decrease in GFR 30-59 4 Severe decrease in GFR 15-29 5 Kidney failure <15 (or dialysis) 37 -- REFERENCE VALUE -- 25-HYDROXY D TOTAL (D2+D3) Optimum levels in the healthy population are 20-50, patients with bone disease may benefit from higher levels within this range. Test Performed by: [facility] - [address] [address] Treating Plant Supervisor: Seth Valdivia III, M.D. 38 Because ethnic data is not always readily available, this report includes an eGFR for both -Americans and non- Americans. The National Kidney Disease Education Program (NKDEP) does not endorse the use of the MDRD equation for patients that are not between the ages of 18 and 70, are , have extremes of body size, muscle mass, or nutritional status, or are non- or non-. According to the National Kidney Foundation, irrespective of diagnosis, the stage of the disease is based on the level of kidney function: Stage Description GFR(mL/min/1.73 m(2)) 1 Kidney damage with normal or decreased GFR 90 2 Kidney damage with mild decrease in GFR 60-89 3 Moderate decrease in GFR 30-59 4 Severe decrease in GFR 15-29 5 Kidney failure <15 (or dialysis) 39 Acute inflammation: >10.00 40 Because ethnic data is not always readily available, this report includes an eGFR for both -Americans and non- Americans. The National Kidney Disease Education Program (NKDEP) does not endorse the use of the MDRD equation for patients that are not between the ages of 18 and 70, are , have extremes of body size, muscle mass, or nutritional status, or are non- or non-. According to the National Kidney Foundation, irrespective of diagnosis, the stage of the disease is based on the level of kidney function: Stage Description GFR(mL/min/1.73 m(2)) 1 Kidney damage with normal or decreased GFR 90 2 Kidney damage with mild decrease in GFR 60-89 3 Moderate decrease in GFR 30-59 4 Severe decrease in GFR 15-29 5 Kidney failure <15 (or dialysis) 41 Low risk: <1.0 mg/L Average risk: 1.0-3.0 mg/L High risk: >3.0 mg/L Acute inflammation: >10.0 mg/L 42 Because ethnic data is not always readily available, this report includes an eGFR for both -Americans and non- Americans. The National Kidney Disease Education Program (NKDEP) does not endorse the use of the MDRD equation for patients that are not between the ages of 18 and 70, are , have extremes of body size, muscle mass, or nutritional status, or are non- or non-. According to the National Kidney Foundation, irrespective of diagnosis, the stage of the disease is based on the level of kidney function: Stage Description GFR(mL/min/1.73 m(2)) 1 Kidney damage with normal or decreased GFR 90 2 Kidney damage with mild decrease in GFR 60-89 3 Moderate decrease in GFR 30-59 4 Severe decrease in GFR 15-29 5 Kidney failure <15 (or dialysis) 43 Because ethnic data is not always readily available, this report includes an eGFR for both -Americans and non- Americans. The National Kidney Disease Education Program (NKDEP) does not endorse the use of the MDRD equation for patients that are not between the ages of 18 and 70, are , have extremes of body size, muscle mass, or nutritional status, or are non- or non-. According to the National Kidney Foundation, irrespective of diagnosis, the stage of the disease is based on the level of kidney function: Stage Description GFR(mL/min/1.73 m(2)) 1 Kidney damage with normal or decreased GFR 90 2 Kidney damage with mild decrease in GFR 60-89 3 Moderate decrease in GFR 30-59 4 Severe decrease in GFR 15-29 5 Kidney failure <15 (or dialysis) 44 Because ethnic data is not always readily available, this report includes an eGFR for both -Americans and non- Americans. The National Kidney Disease Education Program (NKDEP) does not endorse the use of the MDRD equation for patients that are not between the ages of 18 and 70, are , have extremes of body size, muscle mass, or nutritional status, or are non- or non-. According to the National Kidney Foundation, irrespective of diagnosis, the stage of the disease is based on the level of kidney function: Stage Description GFR(mL/min/1.73 m(2)) 1 Kidney damage with normal or decreased GFR 90 2 Kidney damage with mild decrease in GFR 60-89 3 Moderate decrease in GFR 30-59 4 Severe decrease in GFR 15-29 5 Kidney failure <15 (or dialysis) 45 Because ethnic data is not always readily available, this report includes an eGFR for both -Americans and non- Americans. The National Kidney Disease Education Program (NKDEP) does not endorse the use of the MDRD equation for patients that are not between the ages of 18 and 70, are , have extremes of body size, muscle mass, or nutritional status, or are non- or non-. According to the National Kidney Foundation, irrespective of diagnosis, the stage of the disease is based on the level of kidney function: Stage Description GFR(mL/min/1.73 m(2)) 1 Kidney damage with normal or decreased GFR 90 2 Kidney damage with mild decrease in GFR 60-89 3 Moderate decrease in GFR 30-59 4 Severe decrease in GFR 15-29 5 Kidney failure <15 (or dialysis) 46 -- REFERENCE VALUE -- 25-HYDROXY D TOTAL (D2+D3) Optimum levels in the normal population are 25-80 Test Performed by: [place] [address] Treating Plant Supervisor: Seth Valdivia III, M.D. 47 Interpretation: 10-24 (mild to moderate deficiency) -- REFERENCE VALUE -- 25-HYDROXY D TOTAL (D2+D3) Optimum levels in the normal population are 25-80 Test Performed by: [place] [address] Treating Plant Supervisor: Seth Valdivia III, M.D. 48 Because ethnic data is not always readily available, this report includes an eGFR for both -Americans and non- Americans. The National Kidney Disease Education Program (NKDEP) does not endorse the use of the MDRD equation for patients that are not between the ages of 18 and 70, are , have extremes of body size, muscle mass, or nutritional status, or are non- or non-. According to the National Kidney Foundation, irrespective of diagnosis, the stage of the disease is based on the level of kidney function: Stage Description GFR(mL/min/1.73 m(2)) 1 Kidney damage with normal or decreased GFR 90 2 Kidney damage with mild decrease in GFR 60-89 3 Moderate decrease in GFR 30-59 4 Severe decrease in GFR 15-29 5 Kidney failure <15 (or dialysis) 49 Anion gap measurement may be of limited value in the presence of any alkalosis, especially in a combined acid base disorder. . 50 A metabolite of Naproxen, O-desmethylnaproxen, has been shown to interfere with the Jendrassik-Silvio method for measuring total bilirubin. Samples from patients who have taken Naproxen have shown spurious elevation in total bilirubin levels. 51 Because ethnic data is not always readily available, this report includes an eGFR for both -Americans and non- Americans. The National Kidney Disease Education Program (NKDEP) does not endorse the use of the MDRD equation for patients that are not between the ages of 18 and 70, are , have extremes of body size, muscle mass, or nutritional status, or are non- or non-. According to the National Kidney Foundation, irrespective of diagnosis, the stage of the disease is based on the level of kidney function: Stage Description GFR(mL/min/1.73 m(2)) 1 Kidney damage with normal or decreased GFR 90 2 Kidney damage with mild decrease in GFR 60-89 3 Moderate decrease in GFR 30-59 4 Severe decrease in GFR 15-29 5 Kidney failure <15 (or dialysis) Procedures Date Code Description Status 08/02/201808187 Inject/Drain Joint/Bursa Major W/O US Completed 05/17/201813998 Inject/Drain Joint/Bursa Major W/O US Completed 01/18/201851992 Inject/Drain Joint/Bursa Major W/O US Completed 10/07/201755152 Inject/Drain Joint/Bursa Major W/O US Completed 09/28/201722706 Inject/Drain Joint/Bursa Major W/O US Completed 01/07/201663124 Inject/Drain Joint/Bursa Major W/O US Completed 12/24/201545926 Inject/Drain Joint/Bursa Major W/O US Completed 08/30/2015 30699 Inject/Drain Joint/Bursa Small W/O US Completed 06/01/2015 54363 Dequervains-Tendon Sheath Incision/Extensor Sheath,Wrist Completed 06/01/2015 54124 Dequervains-Tendon Sheath Incision/Extensor Sheath,Wrist Completed 01/25/2015 33512 Inject Tendon Sheath Or Ligament Aponeurosis Eg Plantar Completed Fascia 06/15/2014 58919 Inject Tendon Sheath Or Ligament Aponeurosis Eg Plantar Completed Fascia 12/15/2013 04911 Inject Tendon Sheath Or Ligament Aponeurosis Eg Plantar Completed Fascia 06/30/2013 50568 Rad Exam; Wrist, Comp, Min 3 Views Completed 06/30/201319444 Inject/Drain Joint/Bursa Major W/O US Completed 06/30/2013 89049 Injection Single Tendon Origin/Insertion Completed 06/30/2013 59001 Inject Tendon Sheath Or Ligament Aponeurosis Eg Plantar Completed Fascia 02/10/2013 36602 X-Ray Spine Cervical Four Views Completed 01/21/2013 16335 Rad Exam; Foot Comp Completed 11/04/2012 06535 Rad Exam; Wrist, Comp, Min 3 Views Completed 11/04/2012 88490 Rad Shoulder Comp, Min. 2 Views Completed 10/28/201242984 Inject/Drain Joint/Bursa Major W/O US Completed 10/28/201262012 Inject/Drain Joint/Bursa Major W/O US Completed 10/07/2012 24422 Xray Knee 3 Views Completed 10/07/2012 24819 Rad Shoulder Comp, Min. 2 Views Completed Encounters Type Date Location Provider Dx Diagnosis Office Visit 07/21/2018 Rheumatology Alejandro Odell, M06.9 Rheumatoid 3:20p Services Of Drake Briceño arthritis, unspecified Z79.899 Other moth exterminator (current) drug therapy M17.12 Unilateral primary osteoarthritis, left knee J32.8 Other chronic sinusitis Office Visit 05/31/2018 3:15p Orthopedic Dominga Villar, S83.411A Sprain of medial Services Of [facility] collateral C.M.A. ligament of right knee, init Office Visit 05/10/2018 3:15p Orthopedic Leonard Brumfield, S83.411A Sprain of medial Services Of M.D. collateral C.M.A. ligament of right knee, init W00.0xxA Fall on same level due to ice and snow, initial encounter Office Visit 04/23/2018 Ayan Neumann G44.40 Drug-induced 3:15p Neurologic M.D. headache, NEC, [facility] not intractable F41.9 Anxiety disorder, unspecified Office Visit 01/18/2018 Orthopedic Leonard Brumfield, M17.12 Unilateral primary 3:30p Services Of [place] osteoarthritis, left C.M.A. knee M17.11 Unilateral primary osteoarthritis, right knee M06.9 Rheumatoid arthritis, unspecified Office Visit 10/21/2017 3:00p Rheumatology Alejandro Blake6.9 Rheumatoid Services Of Drake Odell M.D. arthritis, unspecified Z79.899 Other detention (current) drug therapy Office Visit 09/28/2017 Orthopedic Leonard Brumfield, M17.11 Unilateral primary 11:00a [facility] [place] osteoarthritis, right C.M.A. knee M06.9 Rheumatoid arthritis, unspecified M17.12 Unilateral primary osteoarthritis, left knee Office Visit 09/09/2017 Neurohospitalist Queta G44.40 Drug-induced 9:00a Clinic MD Mary headache, NEC, not intractable F41.9 Anxiety disorder, unspecified Office Visit 07/15/2017 Neurohospitalist Queta Hernandez, G44.40 Drug-induced 3:00p Clinic headache, NEC, not intractable Office Visit 05/19/2017 Neurohospitalist Queta Hernandez G44.40 Drug-induced 1:00p Clinic headache, NEC, not intractable Office Visit 05/12/2017 Orthopedic Services Jim M72.2 Plantar fascial 9:15a Of Julia Clemons M.D. fibromatosis Office Visit 04/22/2017 Rheumatology Services Alejandro M06.062 Rheumatoid 10:20a Of Drake Odell M.D. arthritis without rheumatoid factor, left knee Z79.899 Other moth exterminator (current) drug therapy M22.41 Chondromalacia patellae, right knee R70.0 Elevated erythrocyte sedimentation rate Office Visit 10/16/2016 4:00p Rheumatology Alejandro M06.062 Rheumatoid Services Of Drake Odell M.D. arthritis without rheumatoid factor, left knee Z79.899 Other moth exterminator (current) drug therapy M22.41 Chondromalacia patellae, right knee M20.22 Hallux rigidus, left foot Office Visit 07/08/2016 9:30a Orthopedic Jim Arrington72.2 Plantar fascial [facility] [place] Clemons fibromatosis C.M.A. M20.22 Hallux rigidus, left foot Office Visit 05/19/2016 8:20a Rheumatology Alejandro M06.062 Rheumatoid Services Of Drake Odell M.D. arthritis without rheumatoid factor, left knee M22.41 Chondromalacia patellae, right knee Z79.899 Other detention (current) drug therapy G89.4 Chronic pain syndrome Office Visit 01/07/2016 3:30p Orthopedic Leonard Brumfield M06.062 Rheumatoid [facility] [place] arthritis without C.M.A. rheumatoid factor, left knee Office Visit 12/24/2015 2:30p Orthopedic Leonard Brumfield M17.11 Unilateral [facility] [place] primary C.M.A. osteoarthritis, right knee M17.12 Unilateral primary osteoarthritis, left knee Office Visit 12/11/2015 4:40p Rheumatology Alejandro M06.09 Rheumatoid Services Of Drake Odell M.D. arthritis w/o rheumatoid factor, multiple sites M22.41 Chondromalacia patellae, right knee Z79.899 Other detention (current) drug therapy M65.4 Radial styloid tenosynovitis [de Quervain] Office Visit 11/14/2015 Orthopedic Leonard Brumfield M22.41 Chondromalacia 9:00a [facility] [place] patellae, right C.M.A. knee Office Visit 08/30/2015 Orthopedic Latasha M06.09 Rheumatoid 1:20p [facility] [place] Awad arthritis w/o C.M.A. rheumatoid factor, multiple sites M65.4 Radial styloid tenosynovitis [de Quervain] Office Visit 08/27/2015 4:40p Rheumatology Alejandro M06.09 Rheumatoid Services Of Drake Odell M.D. arthritis w/o rheumatoid factor, multiple sites M65.4 Radial styloid tenosynovitis [de Quervain] Z79.899 Other detention (current) drug therapy G89.4 Chronic pain syndrome Z23 Encounter for immunization Office Visit 05/03/2015 Orthopedic Latasha M65.4 Radial styloid 2:45p Services Of Julia Awad M.D. tenosynovitis [de Quervain] Office Visit 04/19/2015 Rheumatology Rolan Patton, M06.09 Rheumatoid 2:40p Services Of [facility] Briceño arthritis w/o rheumatoid factor, multiple sites Z79.899 Other moth exterminator (current) drug therapy Office Visit 01/25/2015 Orthopedic Latasha M65.4 Radial styloid 4:20p [facility] [place] Awad tenosynovitis [de RockyMElena Quervain] G56.02 Carpal tunnel syndrome, left upper limb Office Visit 01/18/2015 9:30a Rheumatology Arielle Soto G89.4 Chronic pain [facility] SHANK ARCHER syndrome F43.0 Acute stress reaction M25.579 Pain in unspecified ankle and joints of unspecified foot M25.519 Pain in unspecified shoulder M06.09 Rheumatoid arthritis w/o rheumatoid factor, multiple sites Z79.899 Other detention (current) drug therapy G89.29 Other chronic pain Office Visit 11/15/2014 4:30p Rheumatology Arielle Soto 714.0 Rheumatoid [facility] SHANK ARCHER Arthritis 790.6 Abnormal Blood Chemistry Other V58.69 Medications Residential (Current) Use Encounter 719.47 Pain Joint Ankle & Foot Office Visit 08/15/2014 4:30p Rheumatology Arielle Soto 714.0 Rheumatoid [facility] SHANK ARCHER Arthritis V58.69 Medications Irrigator Valve Pipe (Current) Use Encounter Office Visit 03/24/2014 4:00p Rheumatology Arielle Soto 714.0 Rheumatoid [facility] SHANK ARCHER Arthritis 845.00 Sprains & Strains Ankle Unspec Site 782.0 Skin Sensation Disturbance 268.9 Vitamin D Deficiency Unspec V58.69 Medications Residential (Current) Use Encounter Office Visit 03/02/2014 Orthopedic Jim 845.00 Sprains & Strains 4:00p Services Of Julia Clemons M.D. Ankle Unspec Site Office Visit 02/01/2014 Orthopedic Jim 727.04 Tenosynovitis 4:15p Services Of Julia Clemons M.D. Radial Styloid Office Visit 10/24/2013 Rheumatology Arielle 714.0 Rheumatoid 3:00p [facility] PETTY Soto Arthritis V58.69 Medications Irrigator Valve Pipe (Current) Use Encounter 780.79 Malaise And Fatigue Other 268.9 Vitamin D Deficiency Unspec Office Visit 06/30/2013 1:00p Orthopedic Latasha Awad, 726.2 Shoulder Region Services Of M.D. Affections Other C.M.A. Not Elsewhere Class 727.04 Tenosynovitis Radial Styloid Office Visit 06/03/2013 3:00p Rheumatology Rolan Patton, 714.0 Rheumatoid [facility] M.DAkilah Arthritis V58.69 Medications Irrigator Valve Pipe (Current) Use Encounter Office Visit 02/10/2013 Orthopedic Latasha 847.0 Sprains & Strains 3:15p Services Of Julia Awad M.D. Neck Office Visit 01/21/2013 Orthopedic Jim Clemons, 728.71 Fibromatosis 3:15p Services Of Julia Briceño Plantar Fascia Office Visit 01/12/2013 Rheumatology Rolan Patton, 714.0 Rheumatoid 2:40p [facility] MAkilahDAkilah Arthritis V58.69 Medications Irrigator Valve Pipe (Current) Use Encounter Office Visit 11/04/2012 8:00a Orthopedic Latasha Awad, 840.4 Sprains & Services Of M.D. Strains Rotator C.M.A. Cuff (Capsule) 842.00 Sprains & Strains Wrist & Hand Unspec Site Office Visit 10/28/2012 3:15p Orthopedic Latasha Awad 840.4 Sprains & Services Of M.D. Strains Rotator C.M.A. Cuff (Capsule) 715.91 Osteoarthrosis Unspec Genlzd Or Localized Shoulder 717.7 Chondromalacia Of Patella 715.96 Osteoarthrosis Unspec Genlzd Or Localized Lower Leg Office Visit 10/07/2012 2:30p Orthopedic Latasha Awad, 840.4 Sprains & Services Of M.D. Strains Rotator C.M.A. Cuff (Capsule) 836.0 Dislocation Knee Tear Of Medial Cartilage Or Meniscus Curren 727.09 Synovitis & Tenosynovitis Other Office Visit 09/03/2012 3:40p Rheumatology Arielle Soto, 714.0 Rheumatoid [facility] SHANK ARCHER Arthritis V58.69 Medications Irrigator Valve Pipe (Current) Use Encounter 461.9 Sinusitis Acute Unspec Office Visit 04/15/2012 4:20p Rheumatology Rolan Endo, 714.0 Rheumatoid Services Of [employer] Flanging Operator M.D. Arthritis V58.69 Medications Residential (Current) Use Encounter 780.79 Malaise And Fatigue Other Office Visit 12/23/2011 4:20p Rheumatology Rolan Endo, 714.0 Rheumatoid Services Of [employer] Flanging Operator M.D. Arthritis V58.69 Medications Irrigator Valve Pipe (Current) Use Encounter 726.19 Shoulder Disorders Other Spec Office Visit 06/02/2011 4:00p Rheumatology Rolan Endo, 714.0 Rheumatoid Services Of [employer] Flanging Operator M.D. Arthritis V58.69 Medications Residential (Current) Use Encounter Office Visit 01/30/2011 4:20p Rheumatology Rolan Endo, 714.0 Rheumatoid Services Of [employer] Flanging Operator M.D. Arthritis V58.69 Medications Residential (Current) Use Encounter Office Visit 09/30/2010 4:00p Rheumatology Rolan Endo, 714.0 Rheumatoid Services Of [employer] Flanging Operator M.D. Arthritis V58.69 Medications Irrigator Valve Pipe (Current) Use Encounter Plan of Treatment Future Appointment(s):10/20/2018 3:00 pm - Alejandro Odell M.D. at [facility]08/20/2018 3:30 pm - Justin Neumann M.D. at [facility]08/02/2018 - Leonard Brumfield M.D.M06.9 Rheumatoid arthritis, unspecifiedFollow up:Follow up: As needed Gentle exercises right knee for bending, straightening, and lifting
--- NOTE | 2018-08-23 16:26 | ED ---
Upper Extremity Pain - HPI Summary HPI Summary: Patient is a 48-year-old female presenting to the ED with a contusion to the left forearm and wrist after a fall 3 days ago. She states she did not have pain immediately following the fall, however endorses pain now and states she is unable to do her job. 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 She denies any other injuries during her fall. She is unsure how she landed, but believes she landed on the dorsum side of the forearm. She is able to flex and extend at the wrist. Pain is most notably to the dorsum of the wrist and forearm radiating to the elbow. She is able to flex and extend at the elbow. She denies any pain to the shoulder of the fingertips. She has taken a hydrocodone prior to arrival with some improvement. She arrives with ice. - History of Current Complaint Chief Complaint: EDExtremityUpper Stated Complaint: LEFT ELBOW INJURY Time Seen by Provider: 08/23/18 14:06 Hx Obtained From: Patient Hx Last Menstrual Period: 09/02/14 Mechanism Of Injury: Blunt Trauma Timing: Constant Severity Initially: Moderate Severity Currently: Moderate Pain Location: Arm Character: Aching Aggravating Factor(s): Lifting, Flexion, Extension Alleviating Factor(s): Rest, Ice Associated Signs & Symptoms: Negative: Swelling, Redness, Bruising, Weakness, Numbness/Tingling, Chest Pain - Risk Factors Non-Orthopedic Risk Factor: Negative DVT Risk Factors: Negative Septic Arthritis Risk Factor: Negative Compartment Syndrome Risk Factors: Pain - Allergies/Home Medications Allergies/Adverse Reactions: Allergies Allergy/AdvReac Type Severity Reaction Status Date / Time ibuprofen Allergy Hives Verified 08/23/18 14:01 ketorolac [From Toradol] Allergy Hives Verified 08/23/18 14:01 doxycycline AdvReac Stomach Verified 04/14/18 10:17 Cramps leflunomide [From Arava] AdvReac Hives Verified 04/14/18 10:17 naproxen AdvReac Stomach Verified 04/14/18 10:17 Cramps Sulfa (Sulfonamide AdvReac Hives Verified 04/14/18 10:17 Antibiotics) PMH/Surg Hx/FS Hx/Imm Hx Previously Healthy: Yes Endocrine/Hematology History: Denies: Hx Anticoagulant Therapy, Hx Diabetes Cardiovascular History: Reports: Hx Rheumatic Fever - Hx OF 1998, NO RESIDENTIAL EFFECTS Denies: Hx Hypertension, Hx Pacemaker/ICD Respiratory History: Reports: Hx Asthma - cough variant GI History: Reports: Hx Gastroesophageal Reflux Disease, Hx Hiatal Hernia - SMALL. NO Sx, Hx Jaundice - INFANT, Other GI Disorders - IBS History: Denies: Hx Renal Disease Musculoskeletal History: Reports: Hx Arthritis - RA, Hx Bursitis - LEFT SHOULDER , Hx Tendonitis - RT WRIST Sensory History: Reports: Hx Contacts or Glasses - GLASSES Denies: Hx Hearing Aid Opthamlomology History: Reports: Hx Contacts or Glasses - GLASSES Psychiatric History: Reports: Hx Anxiety - MEDS AVAILABLE, Hx Depression, Hx Post Traumatic Stress Disorder Denies: Hx Panic Disorder - Cancer History Hx Chemotherapy: No Hx Radiation Therapy: No - Surgical History Surgery Procedure, Year, and Place: R wrist surgery - MAY 2015 - Immunization History Hx Pertussis Vaccination: No Immunizations Up to Date: Yes Infectious Disease History: No Infectious Disease History: Reports: Hx Shingles - 2009 Denies: History Other Infectious Disease, Traveled Outside the [place] in Last 30 Days - Family History Known Family History: Positive: None - Social History Occupation: Employed Full-time Lives: With Family Alcohol Use: Rare Alcohol Amount: 1-2 DRINKS/MONTH Hx Substance Use: No Substance Use Type: Reports: None Hx Tobacco Use: No Smoking Status (MU): Former Smoker Type: Cigarettes Amount Used/How Often: 1PPWEEK 7 YRS Have You Smoked in the Last Year: No Review of Systems Constitutional: Negative Negative: Fever, Chills, Fatigue, Skin Diaphoresis Negative: Epistaxis, Dental Pain Negative: Palpitations, Chest Pain Genitourinary: Negative Positive: no symptoms reported, see HPI Positive: Arthralgia - left wrist and forearm. Negative: Myalgia Positive: Other - abrasion to the L wrist Negative: Headache, Weakness, Paresthesia Psychological: Normal All Other Systems Reviewed And Are Negative: Yes Physical Exam Triage Information Reviewed: Yes Vital Signs On Initial Exam: Initial Vitals Temp Pulse Resp BP Pulse Ox 98.6 F 85 18 105/72 97 08/23/18 13:58 08/23/18 13:58 08/23/18 13:58 08/23/18 13:58 08/23/18 13:58 Vital Signs Reviewed: Yes Appearance: Positive: Well-Appearing, Well-Nourished Skin: Positive: Warm, Skin Color Reflects Adequate Perfusion Head/Face: Positive: Normal Head/Face Inspection Eyes: Positive: EOMI, CRISTOBAL, Conjunctiva Clear Neck: Positive: Supple, Nontender, No Lymphadenopathy Respiratory/Lung Sounds: Positive: Clear to Auscultation, Breath Sounds Present Cardiovascular: Positive: RRR, Pulses are Symmetrical in both Upper and Lower Extremities Musculoskeletal: Positive: Pain @ - left forearm Neurological: Positive: Sensory/Motor Intact, Alert, Oriented to Person Place, Time Psychiatric: Positive: Normal, Affect/Mood Appropriate AVPU Assessment: Alert Diagnostics - Vital Signs Vital Signs Temp Pulse Resp BP Pulse Ox 08/23/18 13:58 98.6 F 85 18 105/72 97 - Laboratory Lab Statement: Any lab studies that have been ordered have been reviewed, and results considered in the medical decision making process. Course/Dx - Course Course Of Treatment: During his course of treatment, the patient is evaluated for right forearm and wrist contusion. She states she fell 3 days ago and has been endorsing worsening pain since that time. She arrives with ice. There is pain with palpation to the forearm, wrist and elbow. She states the contusion occurred directly over her left forearm and now is radiating to the R wrist and elbow. Denies ecchymosis, color temperature changes. There is a small abrasion to the dorsal side of the distal forearm. Denies any numbness or tingling throughout. Denies any obvious swelling. No deformity is noted. X- rays obtained of the forearm and wrist which showed no evidence of fracture. She is requesting a note for work and is given a note for work 3 days. She is encouraged ibuprofen and Tylenol. Sling is given upon request. - Diagnoses Differential Diagnosis/HQI/PQRI: Positive: Strain, Sprain Provider Diagnoses: Contusion, forearm Discharge - Sign-Out/Discharge Documenting (check all that apply): Patient Departure Patient Received Moderate/Deep Sedation with Procedure: No - Discharge Plan Condition: Stable Disposition: HOME Patient Education Materials: Contusion in Adults (ED) Forms: *Work Release Referrals: Trini Cuba NP [Primary Care Provider] - Additional Instructions: Take tylenol as needed for pain Heat to the area for comfort Sling Off work x 3 days Do not use the arm if you are in pain - Billing Disposition and Condition Condition: STABLE Disposition: Home
[2018-08-23 16:38] VITALS: BP 110/46
== END | disposition home or self-care (01) ==
LOC: ED 13:55
DX: S50.11XA Contusion of right forearm, initial encounter (principal); W19.XXXA Unspecified fall, initial encounter; J45.991 Cough variant asthma; K21.9 Gastro-esophageal reflux disease without esophagitis; K44.9 Diaphragmatic hernia without obstruction or gangrene; K58.9 Irritable bowel syndrome, unspecified; F41.9 Anxiety disorder, unspecified; F32.9 Major depressive disorder, single episode, unspecified; Z88.6 Allergy status to analgesic agent; Z88.8 Allergy status to other drugs, medicaments and biological substances; Z88.3 Allergy status to other anti-infective agents; Z88.2 Allergy status to sulfonamides; Z87.891 Personal history of nicotine dependence
CPT/HCPCS: 99282

== ENCOUNTER 2023-08-29 13:28 | Inpatient (IN) ==
[2023-08-29] MEDS: Dexamethasone IV 4 MG/ML VIAL 1 ml VIAL IV SLOW PU ONE (14:24)
[2023-08-29] MEDS: cefTRIAXone 2 gm/50 mL D5W 2 GM/50 ML BAG IV ONE (14:24)
[2023-08-29] MEDS: LACTATED RINGERS SEPSIS IV ONE (14:25)
[2023-08-29 14:33] LABS: ABS Monocytes 0.2 10^3/uL (0.0-0.9); ABS Neutrophils 4.3 10^3/uL (1.5-7.6); ABS Nucleated RBC 0.01 10^3/ul; Hematocrit 45.4 % (35-45); Hemoglobin 15.3 g/dL (11.5-14.3); Lymphocyte % 18.6 %; Mean Corpuscular Hemoglobin 30.1 pg (27-33); Mean Corpuscular Hgb Conc 33.7 g/dL (31-36); Mean Corpuscular Volume 89.3 fL (80-97); Mean Platelet Volume 7.9 fL (7.5-11.2); Nucleated Red Blood Cells % 0.2 %/100WBC (0.0-0.8); Platelet Count 147 10^3/uL (150-450); Red Blood Count 5.09 10^6/uL (3.63-4.92); Red Cell Distribution Width 13.9 % (12-17); White Blood Count 5.5 10^3/uL (3.8-11.8)
[2023-08-29 14:43] LABS: Activated Partial Thrombo Time 32.6 seconds (26.0-38.0); INR 1.04 (0.83-1.13)
[2023-08-29] MEDS ORDERED: Vancomycin 1,000 MG VIAL IVPB SCH (15:00)
[2023-08-29 15:09] LABS: Urine Appearance Clear; Urine Bilirubin Negative (Negative); Urine Blood Negative (Negative); Urine Color Yellow; Urine Glucose Negative (Negative); Urine Ketones Negative (Negative); Urine Nitrite Negative (Negative); Urine Protein Negative (Negative); Urine Specific Gravity 1.022 (1.002-1.030); Urine Urobilinogen Negative (Negative); Urine pH 5.5 (5.0-8.0)
[2023-08-29 15:58] LABS: High Sensitivity Troponin 1 Hr 10 pg/mL (<15)
[2023-08-29] MEDS: Vancomycin 2,000 MG in NS 0.9% 500 ml BAG 500 ML IVPB ONE (15:58)
[2023-08-29 16:19] LABS: Albumin/Globulin Ratio 1.5 (1-3); C Reactive Protein 73.03 mg/L (<8.01); Calcium 10.2 mg/dL (8.6-10.3); Creatinine, Serum 1.28 mg/dL (0.51-0.95); Globulin 3.3 g/dL (2-4); Potassium 3.5 mmol/L (3.5-5.0); Total Bilirubin 0.8 mg/dL (0.2-1.0); Total Protein 8.3 g/dL (6.4-8.9); eGFR CKD-EPI 50.1 (>60)
[2023-08-29 17:34] LABS: Body Fluid Source Cerebral Spinal
[2023-08-29 17:54] LABS: CSF Glucose 78 mg/dL (40-70)
[2023-08-29] MEDS: Lactated Ringers 1000 ml BAG 1,000 ML IV ONE (18:16)
[2023-08-29 18:21] LABS: CSF Body Fluid WBC 0 /mcL
[2023-08-29] MEDS: DOXYcycline 100 MG in NS 0.9% 250 ml 250 ML IVPB ONE (18:56)
[2023-08-29 19:17] LABS: Body Fluid Appearance Clear; Body Fluid Color Colorless
[2023-08-29 19:19] LABS: Body Fluid Total Cells Counted 0; CSF Tube # 4
[2023-08-29] MEDS ORDERED: Vancomycin per Pharmacy 1 EA NOTE FOLLOW UP SCH (22:00)
[2023-08-29] MEDS: Norepinephrine 4 MG/250mL D5W 4,000 MCG/250 ML BAG IV SCH (22:26)
[2023-08-29] MEDS: Norepinephrine 4 MG/250mL D5W 4,000 MCG/250 ML BAG IV ONE (22:41)
[2023-08-29] MEDS: Cefepime 2 GM in Dextrose 2 GM/50 ML BAG IV SCH (22:52)
[2023-08-29] MEDS ORDERED: Levalbuterol HFA INHALER MDI INH PRN (23:13)
[2023-08-29 23:20] LABS: Calcium 8.5 mg/dL (8.6-10.3); Creatinine, Serum 0.93 mg/dL (0.51-0.95); Magnesium 1.6 mg/dL (1.9-2.7); Phosphorus 2.1 mg/dL (2.5-5.0); Potassium 3.3 mmol/L (3.5-5.0); eGFR CKD-EPI 73.5 (>60)
[2023-08-29] MEDS: Enoxaparin 40 MG/0.4 ML SYR SUBCUT SCH (23:26)
[2023-08-29] MEDS: KCL 20 MEQ/100 ML IVPREMIX 20 MEQ/100 ML BAG IV SCH (23:40)
[2023-08-29] MEDS: Potassium & Sodium Phos 250 mg = 1 PACKET PO ONE (23:40)
[2023-08-29] MEDS: Magnesium Sulfate 2 gm BAG 2 GM/50 ML BAG IVPB ONE (23:42)
[2023-08-29] MEDS: HYDROcodone/ACETAMIN 5/325 mg TAB PO PRN (23:46)
[2023-08-30] MEDS: DOXEPIN 50 MG PO SCH ×2 (00:14→22:30)
[2023-08-30] MEDS: Magnesium Sulfate IV 1GM/100ML 1 GM/100 ML BAG IV ONE (01:18)
[2023-08-30] MEDS: HYDROcodone/ACETAMIN 5/325 mg TAB PO PRN (05:48)
[2023-08-30 06:10] LABS: ABS Lymphocytes 0.5 10^3/uL (1.0-4.8); ABS Monocytes 0.1 10^3/uL (0.0-0.9); ABS Nucleated RBC 0.01 10^3/ul; Hemoglobin 12.4 g/dL (11.5-14.3); Lymphocyte % 9.9 %; Mean Corpuscular Hemoglobin 30.1 pg (27-33); Mean Corpuscular Hgb Conc 34.4 g/dL (31-36); Mean Corpuscular Volume 87.5 fL (80-97); Mean Platelet Volume 7.6 fL (7.5-11.2); Nucleated Red Blood Cells % 0.2 %/100WBC (0.0-0.8); Platelet Count 120 10^3/uL (150-450); Red Blood Count 4.11 10^6/uL (3.63-4.92); Red Cell Distribution Width 13.5 % (12-17); White Blood Count 4.6 10^3/uL (3.8-11.8)
[2023-08-30 06:30] LABS: Albumin 3.7 g/dL (3.2-5.2); Albumin/Globulin Ratio 1.6 (1-3); Calcium 8.9 mg/dL (8.6-10.3); Creatinine, Serum 0.75 mg/dL (0.51-0.95); Globulin 2.3 g/dL (2-4); Magnesium 2.7 mg/dL (1.9-2.7); Total Bilirubin 0.3 mg/dL (0.2-1.0); eGFR CKD-EPI 95.1 (>60)
[2023-08-30] MEDS: Mometasone/Formoter 200/5 MDI INH SCH (08:11)
[2023-08-30] MEDS: CARIPRAZINE 4.5 MG PO SCH (08:15)
[2023-08-30] MEDS: Methylphenidate ER 18 mg TAB PO SCH (08:15)
[2023-08-30] MEDS: DOXYcycline 100 MG in NS 0.9% 250 ml 250 ML IVPB SCH (08:40)
[2023-08-30] MEDS ORDERED: Methylphenidate ER 18 mg TAB PO SCH (09:00)
[2023-08-30 12:08] LABS: TSH Ultra Thyroid Stim Horm 0.35 mcIU/mL (0.34-5.60)
[2023-08-30 12:11] LABS: Free T4 1.07 ng/dL (0.61-1.12)
[2023-08-30] MEDS ORDERED: cefTRIAXone 1 gm/50 mL D5W 1 GM/50 ML BAG IV SCH (14:00)
[2023-08-30] MEDS ORDERED: Vancomycin 1,500 MG in NS 0.9% 250 ml 250 ML IVPB SCH (16:00)
[2023-08-31 05:59] LABS: Hematocrit 32.6 % (35-45); Hemoglobin 11.1 g/dL (11.5-14.3); Mean Corpuscular Hemoglobin 30.4 pg (27-33); Mean Corpuscular Hgb Conc 33.9 g/dL (31-36); Mean Corpuscular Volume 89.6 fL (80-97); Platelet Count 107 10^3/uL (150-450); Red Blood Count 3.64 10^6/uL (3.63-4.92); Red Cell Distribution Width 14.1 % (12-17); White Blood Count 4.5 10^3/uL (3.8-11.8)
[2023-08-31 06:18] LABS: Albumin 3.3 g/dL (3.2-5.2); Albumin/Globulin Ratio 1.6 (1-3); Calcium 8.6 mg/dL (8.6-10.3); Creatinine, Serum 0.78 mg/dL (0.51-0.95); Direct Bilirubin 0.1 mg/dL (0.03-0.18); Globulin 2.1 g/dL (2-4); Indirect Bilirubin 0.2 mg/dL (0.3-1.0); Potassium 4.1 mmol/L (3.5-5.0); Total Bilirubin 0.3 mg/dL (0.2-1.0); Total Protein 5.4 g/dL (6.4-8.9); eGFR CKD-EPI 90.8 (>60)
[2023-08-31 06:35] VITALS: BP 127/71
[2023-08-31] MEDS ORDERED: DOXEPIN 50 MG PO SCH (21:00)
[2023-09-01] MEDS ORDERED: Vancomycin Trough Check NOTE FOLLOW UP ONE (15:30)
[2023-09-01 16:15] LABS: Anaplasma phagocytophilum Positive (Negative); B. miyamotoi PCR, B Negative (Negative); Babesia divergens/MO-1 Negative (Negative); Babesia ducani Negative (Negative); Ehrlichia chaffeensis Negative (Negative); Ehrlichia ewingii/canis Negative (Negative); Ehrlichia muris eauclairensis Negative (Negative)
== END 2023-08-31 12:00 | disposition home or self-care (01) | DRG 720 ==
LOC: EDHOLD 13:28 → ED 13:28 → EDHOLD 20:02 → ICU 21:39 → SSU 21:40
PROVIDERS: ADMIT Hospitalist; ATTEND Hospitalist